=== PATIENT | male | born 1935 | race African-American/Black ===

== ENCOUNTER 2018-06-14 14:44 | Inpatient (IN) | payer MEDICARE ==
[~2018-06-14] VITALS: Ht 185.4 cm; Wt 93.0 kg
[~2018-06-14 14:44] MED LIST: FLUT1DIS3 IH; LEVO500T59 PO; PRED-220 PO
--- NOTE | 2018-06-14 15:10 | PHYS DOC ---
Past Medical History Past Medical History: Asthma, COPD, Hypertension Past Surgical History: No Surgical History Alcohol Use: None Drug Use: None Adult General Chief Complaint Chief Complaint: WEAKNESS/GENERALIZED HPI HPI Patient is a 82 year old male who presents with dizziness and weakness. Patient has a known history of COPD for which she takes daily small dose prednisone. He also has diabetes and states he has some difficulty controlling his blood glucose levels. This morning, he had an episode started suddenly when he felt lightheaded and dizzy. He also had some generalized weakness. Patient states he has had these symptoms previously when his blood glucose level was elevated. He did not actually check his level at the time. Patient presents the ER currently with some improvement of symptoms but with concerns that his blood glucose level may still be elevated. He denies fever or chills. He does have a cough but it is baseline and not worse than normal. Denies abdominal pain. Patient does endorse some diminished appetite but no nausea or vomiting. Review of Systems Review of Systems Constitutional: Denies fever Eyes: Denies change in visual acuity HENT: Denies nasal congestion Respiratory: Denies cough or shortness of breath Cardiovascular: No additional information not addressed in HPI GI: Denies abdominal pain : Denies dysuria Musculoskeletal: Denies back pain Integument: Denies rash Neurologic: Denies headache All other systems were reviewed and found to be within normal limits, except as documented in this note. Current Medications Current Medications Current Medications Medications (Trade) Dose Ordered Sig/[facility] Start Time Stop Time Status Last Admin Dose Admin Acetaminophen (Tylenol) 650 mg PRN Q4HRS PRN 06/14/18 17:15 06/15/18 17:14 Albuterol/ Ipratropium (Duoneb) 3 ml 1X ONCE 06/14/18 16:00 06/14/18 16:01 DC 06/14/18 16:04 3 ML Ondansetron HCl (Zofran) 4 mg PRN Q8HRS PRN 06/14/18 17:15 06/15/18 17:14 Sodium Chloride 1,000 ml @ 1,000 mls/hr 1X ONCE 06/14/18 16:30 06/14/18 17:29 DC 06/14/18 16:29 1,000 MLS/HR Allergies Allergies Allergies Coded Allergies Type Severity Reaction Last Updated Verified No Known Drug Allergies 09/21/14 No Physical Exam Physical Exam Constitutional: Well developed, well nourished, no acute distress, non-toxic appearance HENT: Normocephalic, atraumatic, bilateral external ears normal, oropharynx moist Eyes: PERRLA, EOMI Neck: Normal range of motion, no JVD Cardiovascular:Heart rate regular rhythm, no murmur Lungs & Thorax: Breath sounds are clear on the right with no wheezes. There are some congested sounds heard on the left. No increased work of breathing. No diminished airflow. Abdomen: Bowel sounds normal, soft, no tenderness Skin: Warm, dry, no erythema Back: No tenderness Extremities: No tenderness, no edema Neurologic: Alert and oriented X 3 Psychologic: Affect normal Current Patient Data Vital Signs Vital Signs Date Time Temp Pulse Resp B/P (MAP) Pulse Ox O2 Delivery O2 Flow Rate FiO2 06/14/18 16:07 97 Room Air 06/14/18 15:03 98.2 106 20 132/72 (92) 98.2 Lab Values Laboratory Tests Test 06/14/18 13:55 06/14/18 15:05 Urine Collection Type Unknown Urine Color Melania Urine Clarity Clear Urine pH 5.5 Urine Specific [place] 1.020 Urine Protein 30 mg/dL (NEG-TRACE) Urine Glucose (UA) Negative mg/dL (NEG) Urine Ketones (Stick) Trace mg/dL (NEG) Urine Blood Negative (NEG) Urine Nitrite Negative (NEG) Urine Bilirubin Small (NEG) Urine Urobilinogen Dipstick 1.0 mg/dL (0.2 mg/dL) Urine Leukocyte Esterase Small (NEG) Urine RBC 1-2 /HPF (0-2) Urine WBC 5-10 /HPF (0-4) Urine Squamous Epithelial Cells Mod /LPF Urine Bacteria 0 /HPF (0-FEW) Urine Hyaline Casts Moderate /HPF Urine Mucus Marked /LPF White Blood Count 21.2 x10^3/uL (4.0-11.0) H Red Blood Count 4.45 x10^6/uL (4.30-5.70) Hemoglobin 13.4 g/dL (13.0-17.5) Hematocrit 40.6 % (39.0-53.0) Mean Corpuscular Volume 91 fL (79-100) Mean Corpuscular Hemoglobin 30 pg (25-35) Mean Corpuscular Hemoglobin Concent 33 g/dL (31-37) Red Cell Distribution Width 13.5 % (11.5-14.5) Platelet Count 196 x10^3/uL (140-400) Neutrophils (%) (Auto) 95 % (31-73) H Lymphocytes (%) (Auto) 2 % (24-48) L Monocytes (%) (Auto) 3 % (0-9) Eosinophils (%) (Auto) 0 % (0-3) Basophils (%) (Auto) 0 % (0-3) Neutrophils # (Auto) 20.2 x10^3uL (1.8-7.7) H Lymphocytes # (Auto) 0.3 x10^3/uL (1.0-4.8) L Monocytes # (Auto) 0.7 x10^3/uL (0.0-1.1) Eosinophils # (Auto) 0.0 x10^3/uL (0.0-0.7) Basophils # (Auto) 0.0 x10^3/uL (0.0-0.2) Segmented Neutrophils % 64 % (35-66) Band Neutrophils % 32 % (0-9) H Lymphocytes % 1 % (24-48) L Monocytes % 3 % (0-10) Platelet Estimate Adequate (ADEQUATE) Sodium Level 138 mmol/L (136-145) Potassium Level 3.3 mmol/L (3.5-5.1) L Chloride Level 100 mmol/L (98-107) Carbon Dioxide Level 27 mmol/L (21-32) Anion Gap 11 (6-14) Blood Urea Nitrogen 13 mg/dL (8-26) Creatinine 1.5 mg/dL (0.7-1.3) H Estimated GFR (Cockcroft-Gault) 53.9 Glucose Level 164 mg/dL (70-99) H Calcium Level 8.4 mg/dL (8.5-10.1) L Troponin I Quantitative < 0.017 ng/mL (0.000-0.055) FB-Tht-G-Type Natriuretic Peptide 142 pg/mL (0-449) Procalcitonin 31.28 ng/mL (0.00-0.10) H Laboratory Tests 06/14/18 15:05 Laboratory Tests 06/14/18 15:05 EKG EKG No STEMI Interpretation Time: 15:05 Radiology/Procedures Radiology/Procedures CXR: No acute findings. Course & Med Decision Making Course & Med Decision Making Pertinent Labs and Imaging studies reviewed. (See chart for details) Patient is evaluated in the emergency department. He does not have a fever. His vital signs are stable but he is noted to have mild tachycardia. He has dry mucous membranes. Will give small fluid bolus. We'll do chest x-ray given physical exam findings documented above. Duoneb treatment. Patient is seen in the emergency department for some episode of weakness and dizziness that he had earlier in the day. His EKG is normal. His troponin is not elevated. The patient is noted to have significant leukocytosis but he also takes prednisone every day. He did have some minor adventitious lung sounds and congestion initially on arrival to the ER, primarily in the left lung [place]. He was given a dose of DuoNeb treatment which did entirely relieve this finding. His lungs were clear following the treatment. The patient gives no history of fevers or worsening cough or sputum production. He did not have a fever in the emergency room and his vital signs are normal. Mucous membranes were noted to be dry and the patient was given 1 L of normal saline in the ER. He was also noted to have a creatinine of 1.5. He denies prior history of renal insufficiency. His last creatinine was normal range and was 3 years earlier. Urinalysis was positive for a few WBCs. Urine culture was sent but suspicion for any urinary tract infection is low. Ultimately, the patient's pro-calcitonin returned significantly elevated. After this, decision is made to empirically treat for community-acquired pneumonia. He was ordered to have Rocephin in the ER along with azithromycin. Perez Disclaimer Adelaon Disclaimer This electronic medical record was generated, in whole or in part, using a voice recognition dictation system. MARLENY VILLAREAL DO Jun 14, 2018 15:10
[2018-06-14 15:48] LABS: BASO % 0 % (0-3); EOS % 0 % (0-3); HEMATOCRIT 40.6 % (39.0-53.0); HEMOGLOBIN 13.4 g/dL (13.0-17.5); LYMPH # 0.3 x10^3/uL (1.0-4.8); LYMPH % 2 % (24-48); MEAN CORPUSCULAR HEMOGLOBIN 30 pg (25-35); MEAN CORPUSCULAR HGB CONC 33 g/dL (31-37); MEAN CORPUSCULAR VOLUME 91 fL (79-100); MONO # 0.7 x10^3/uL (0.0-1.1); MONO % 3 % (0-9); NEUT # 20.2 x10^3uL (1.8-7.7); NEUT % 95 % (31-73); PLATELET COUNT 196 x10^3/uL (140-400); RED BLOOD COUNT 4.45 x10^6/uL (4.30-5.70); RED CELL DISTRIBUTION WIDTH 13.5 % (11.5-14.5); WHITE BLOOD COUNT 21.2 x10^3/uL (4.0-11.0)
[2018-06-14 15:53] LABS: CALCIUM 8.4 mg/dL (8.5-10.1); CREATININE 1.5 mg/dL (0.7-1.3); GFR 53.9; POTASSIUM 3.3 mmol/L (3.5-5.1)
[2018-06-14] MEDS ORDERED: IPRATRPIUM/ALBUTEROL 0.5/2.5MG 3 ML NEBU. NEB ONE (16:00)
--- NOTE | 2018-06-14 16:18 | RAD ---
Examination: PORTABLE CHEST 1V History: COUGH, HX OF COPD Comparison/Correlation: 10/11/2014 portable chest x-ray exam Findings: Portable upright frontal view chest was obtained. Heart size and pulmonary vasculature are normal. No infiltrate or pleural effusion. Right mid thoracic discoid atelectasis or thickening of the minor fissure is minimal. No pneumothorax. Bony structures are unremarkable. Impression: No active disease. Electronically signed by: Micheal Walters MD (06/14/2018 4:15 PM) [facility]
[2018-06-14] MEDS ORDERED: IV NORMAL SALINE 1000ML BAG 1,000 ML IV ONE (16:30)
[2018-06-14 16:38] LABS: BILIRUBIN,URINE SMALL (NEG); CLARITY,URINE CLEAR; COLOR,URINE AMBER; NITRITE,URINE NEGATIVE (NEG); PH,URINE 5.5; PROTEIN,URINE 30 mg/dL (NEG-TRACE)
[2018-06-14 16:50] LABS: HYALINE CASTS, URINE MODERATE /HPF; SQUAMOUS EPITHELIAL CELL,UR MOD /LPF
[2018-06-14 16:51] LABS: BACTERIA,URINE 0 /HPF (0-FEW)
[2018-06-14 16:56] LABS: % BANDS 32 % (0-9); % LYMPHS 1 % (24-48); % MONOS 3 % (0-10); % SEGS 64 % (35-66); PLT ESTIMATE ADEQUATE (ADEQUATE)
[2018-06-14] MEDS ORDERED: ONDANSETRON PF 4 MG/2 ML VIAL. IV PRN (17:15)
[2018-06-14] MEDS ORDERED: ACETAMINOPHEN 325 MG TABLET. PO PRN (17:15)
[2018-06-14] MEDS ORDERED: AZITHRMYCN 500MG IVPB FOR OMNI 250 ML IV ONE (18:15)
[2018-06-14 19:00] VITALS: BP 135/72
[2018-06-14] MEDS ORDERED: FURO20TA3 PO (19:56)
[2018-06-14] MEDS ORDERED: BUDE10.2 IH (20:36)
[2018-06-14 23:00] VITALS: BP 125/70
[2018-06-15 03:00] VITALS: BP 126/64
[2018-06-15 04:15] LABS: CALCIUM 8.2 mg/dL (8.5-10.1); CREATININE 1.1 mg/dL (0.7-1.3); GFR 77.2
[2018-06-15 07:00] VITALS: BP 128/76
--- NOTE | 2018-06-15 07:07 | EKG ---
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
[2018-06-15] MEDS ORDERED: PIP/TAZO PER PHARMACY MC PRN (08:30)
[2018-06-15] MEDS ORDERED: traMADol 50 MG TABLET PO PRN (08:30)
[2018-06-15] MEDS ORDERED: ONDANSETRON PF 4 MG/2 ML VIAL. IV PRN (08:30)
[2018-06-15] MEDS ORDERED: MORPHINE SULFATE 2 MG/ML VIAL. IV PRN (08:30)
[2018-06-15] MEDS ORDERED: DOCUSATE SODIUM 100 MG CAPSULE. PO PRN (08:30)
[2018-06-15] MEDS ORDERED: ACETAMINOPHEN 325 MG TABLET. PO PRN (08:30)
[2018-06-15] MEDS: PIPERACILLIN/TAZOBACTAM 3.375 GM in IV NORMAL SALINE 50ML 50 ML IV SCH ×2 (09:27→17:30)
[2018-06-15 11:00] VITALS: BP 126/74
[2018-06-15] MEDS ORDERED: ALBUTEROL SULFATE 2.5 MG/3 ML NEBU. NEB PRN (12:00)
[2018-06-15] MEDS: ALBUTEROL SULFATE 2.5 MG/3 ML NEBU. NEB SCH ×3 (12:27→19:10)
[2018-06-15] MEDS: FUROSEMIDE 20 MG TABLET PO SCH (12:54)
[2018-06-15] MEDS: predniSONE 10 MG TABLET PO SCH (12:54)
[2018-06-15 15:00] VITALS: BP 130/72
--- NOTE | 2018-06-15 15:06 | PDOC1 ---
History and Physical Date of Admission Date of Admission 06/15/18 Identification/Chief Complaint Chief Complaint weakness Source Source: Chart review, Patient History of Present Illness History of Present Illness HPI HPI Patient is a 82 year old male who presents with dizziness and weakness yesterday. pt said he had N/V yesterday, non bloody or bilous, with no abd pain. has no diarrhea or constipation. He felt very weak yesterday, could not stand up or walk. He also felt dizzy, concerning his glucose was high but didnot check it. no dm2. has COPD on prednisone 10mg daily. no fever, felt chills. feels baseline sob. cr 1.5. 1/ + bcx. Past Medical History Pulmonary: COPD Past Surgical History Past Surgical History: No pertinent history Family History Family History: Hypertension Social History Smoke: Quit ALCOHOL: rare Drugs: None Current Problem List Problem List Problems Medical Problems: (1) COPD (chronic obstructive pulmonary disease) Status: Acute (2) Dehydration Status: Acute (3) Renal insufficiency Status: Acute Current Medications Current Medications Current Medications Medications (Trade) Dose Ordered Sig/[facility] Start Time Stop Time Status Last Admin Dose Admin Acetaminophen (Tylenol) 650 mg PRN Q6HRS PRN 06/15/18 08:30 Albuterol Sulfate (Ventolin Neb Soln) 2.5 mg RTQID 06/15/18 12:00 06/15/18 12:27 2.5 MG Albuterol/ Ipratropium (Duoneb) 3 ml 1X ONCE 06/14/18 16:00 06/14/18 16:01 DC 06/14/18 16:04 3 ML Azithromycin 250 ml @ 250 mls/hr 1X ONCE 06/14/18 18:15 06/14/18 19:14 DC 06/14/18 23:03 250 MLS/HR Budesonide (Pulmicort) 0.5 mg RTBID 06/15/18 20:00 Ceftriaxone Sodium 50 ml @ 100 mls/hr 1X ONCE 06/14/18 18:15 06/14/18 18:44 DC 06/14/18 18:15 100 MLS/HR Docusate Sodium (Colace) 100 mg PRN DAILY PRN 06/15/18 08:30 Furosemide (Lasix) 20 mg DAILY 06/15/18 12:00 06/15/18 12:54 20 MG Morphine Sulfate (Morphine Sulfate) 2 mg PRN Q2HR PRN 06/15/18 08:30 Ondansetron HCl (Zofran) 4 mg PRN Q6HRS PRN 06/15/18 08:30 Piperacillin Sod/ Tazobactam Sod (Zosyn Per Pharmacy) 1 each PRN DAILY PRN 06/15/18 08:30 Piperacillin Sod/ Tazobactam Sod 3.375 gm/Sodium Chloride 50 ml @ 100 mls/hr Q6HRS 06/15/18 09:00 06/15/18 09:27 100 MLS/HR Prednisone (Prednisone) 10 mg DAILY 06/15/18 12:00 06/15/18 12:54 10 MG Sodium Chloride 1,000 ml @ 1,000 mls/hr 1X ONCE 06/14/18 16:30 06/14/18 17:29 DC 06/14/18 16:29 1,000 MLS/HR Tramadol HCl (Ultram) 50 mg PRN Q6HRS PRN 06/15/18 08:30 Allergies Allergies Allergies Coded Allergies Type Severity Reaction Last Updated Verified No Known Drug Allergies 09/21/14 No ROS Review of System CONSTITUTIONAL: No fever or chills EYES: No recent changes SKIN: No rash or itching CARDIOVASCULAR: No chest pain, syncope, palpitations, or edema RESPIRATORY: No SOB or cough GASTROINTESTINAL: No nausea, vomiting or abdominal pain NEUROLOGICAL: No headaches or weakness ENDOCRINE: No cold or heat intolerance GENITOURINARY: No urgency or frequency of urination MUSCULOSKELETAL: No back pain or joint pain LYMPHATICS: No enlarged lymph nodes PSYCHIATRIC: No anxiety or depression Physical Exam Physical Exam GEN.: No apparent distress. Alert and oriented. HEENT: Head is normocephalic, atraumatic NECK: Supple. LUNGS: bl mild decreased bs HEART: RRR, S1, S2 present. Peripheral pulses intact ABDOMEN: Soft, nontender. Positive bowel sounds. EXTREMITIES: Without any cyanosis. NEUROLOGIC: Normal speech, normal tone PSYCHIATRIC: Normal affect, normal mood. SKIN: No ulcerations Vitals Vitals Vital Signs Date Time Temp Pulse Resp B/P (MAP) Pulse Ox O2 Delivery O2 Flow Rate FiO2 06/15/18 12:27 97 Room Air 06/15/18 11:00 98.4 93 18 126/74 (91) 98.4 Labs Labs Laboratory Tests Test 06/14/18 13:55 06/14/18 15:05 06/14/18 20:25 06/14/18 23:20 Urine Collection Type Unknown Urine Color Melania Urine Clarity Clear Urine pH 5.5 Urine Specific [place] 1.020 Urine Protein 30 mg/dL (NEG-TRACE) Urine Glucose (UA) Negative mg/dL (NEG) Urine Ketones (Stick) Trace mg/dL (NEG) Urine Blood Negative (NEG) Urine Nitrite Negative (NEG) Urine Bilirubin Small (NEG) Urine Urobilinogen Dipstick 1.0 mg/dL (0.2 mg/dL) Urine Leukocyte Esterase Small (NEG) Urine RBC 1-2 /HPF (0-2) Urine WBC 5-10 /HPF (0-4) Urine Squamous Epithelial Cells Mod /LPF Urine Bacteria 0 /HPF (0-FEW) Urine Hyaline Casts Moderate /HPF Urine Mucus Marked /LPF White Blood Count 21.2 x10^3/uL (4.0-11.0) Red Blood Count 4.45 x10^6/uL (4.30-5.70) Hemoglobin 13.4 g/dL (13.0-17.5) Hematocrit 40.6 % (39.0-53.0) Mean Corpuscular Volume 91 fL (79-100) Mean Corpuscular Hemoglobin 30 pg (25-35) Mean Corpuscular Hemoglobin Concent 33 g/dL (31-37) Red Cell Distribution Width 13.5 % (11.5-14.5) Platelet Count 196 x10^3/uL (140-400) Neutrophils (%) (Auto) 95 % (31-73) Lymphocytes (%) (Auto) 2 % (24-48) Monocytes (%) (Auto) 3 % (0-9) Eosinophils (%) (Auto) 0 % (0-3) Basophils (%) (Auto) 0 % (0-3) Neutrophils # (Auto) 20.2 x10^3uL (1.8-7.7) Lymphocytes # (Auto) 0.3 x10^3/uL (1.0-4.8) Monocytes # (Auto) 0.7 x10^3/uL (0.0-1.1) Eosinophils # (Auto) 0.0 x10^3/uL (0.0-0.7) Basophils # (Auto) 0.0 x10^3/uL (0.0-0.2) Segmented Neutrophils % 64 % (35-66) Band Neutrophils % 32 % (0-9) Lymphocytes % 1 % (24-48) Monocytes % 3 % (0-10) Platelet Estimate Adequate (ADEQUATE) Sodium Level 138 mmol/L (136-145) Potassium Level 3.3 mmol/L (3.5-5.1) Chloride Level 100 mmol/L (98-107) Carbon Dioxide Level 27 mmol/L (21-32) Anion Gap 11 (6-14) Blood Urea Nitrogen 13 mg/dL (8-26) Creatinine 1.5 mg/dL (0.7-1.3) Estimated GFR (Cockcroft-Gault) 53.9 Glucose Level 164 mg/dL (70-99) Calcium Level 8.4 mg/dL (8.5-10.1) Troponin I Quantitative < 0.017 ng/mL (0.000-0.055) < 0.017 ng/mL (0.000-0.055) < 0.017 ng/mL (0.000-0.055) UA-Fto-H-Type Natriuretic Peptide 142 pg/mL (0-449) Procalcitonin 31.28 ng/mL (0.00-0.10) Test 06/15/18 02:50 Sodium Level 145 mmol/L (136-145) Potassium Level 4.0 mmol/L (3.5-5.1) Chloride Level 108 mmol/L (98-107) Carbon Dioxide Level 30 mmol/L (21-32) Anion Gap 7 (6-14) Blood Urea Nitrogen 13 mg/dL (8-26) Creatinine 1.1 mg/dL (0.7-1.3) Estimated GFR (Cockcroft-Gault) 77.2 Glucose Level 95 mg/dL (70-99) Calcium Level 8.2 mg/dL (8.5-10.1) Laboratory Tests Test 06/14/18 15:05 06/14/18 20:25 06/14/18 23:20 06/15/18 02:50 White Blood Count 21.2 x10^3/uL (4.0-11.0) Red Blood Count 4.45 x10^6/uL (4.30-5.70) Hemoglobin 13.4 g/dL (13.0-17.5) Hematocrit 40.6 % (39.0-53.0) Mean Corpuscular Volume 91 fL (79-100) Mean Corpuscular Hemoglobin 30 pg (25-35) Mean Corpuscular Hemoglobin Concent 33 g/dL (31-37) Red Cell Distribution Width 13.5 % (11.5-14.5) Platelet Count 196 x10^3/uL (140-400) Neutrophils (%) (Auto) 95 % (31-73) Lymphocytes (%) (Auto) 2 % (24-48) Monocytes (%) (Auto) 3 % (0-9) Eosinophils (%) (Auto) 0 % (0-3) Basophils (%) (Auto) 0 % (0-3) Neutrophils # (Auto) 20.2 x10^3uL (1.8-7.7) Lymphocytes # (Auto) 0.3 x10^3/uL (1.0-4.8) Monocytes # (Auto) 0.7 x10^3/uL (0.0-1.1) Eosinophils # (Auto) 0.0 x10^3/uL (0.0-0.7) Basophils # (Auto) 0.0 x10^3/uL (0.0-0.2) Segmented Neutrophils % 64 % (35-66) Band Neutrophils % 32 % (0-9) Lymphocytes % 1 % (24-48) Monocytes % 3 % (0-10) Platelet Estimate Adequate (ADEQUATE) Sodium Level 138 mmol/L (136-145) 145 mmol/L (136-145) Potassium Level 3.3 mmol/L (3.5-5.1) 4.0 mmol/L (3.5-5.1) Chloride Level 100 mmol/L (98-107) 108 mmol/L (98-107) Carbon Dioxide Level 27 mmol/L (21-32) 30 mmol/L (21-32) Anion Gap 11 (6-14) 7 (6-14) Blood Urea Nitrogen 13 mg/dL (8-26) 13 mg/dL (8-26) Creatinine 1.5 mg/dL (0.7-1.3) 1.1 mg/dL (0.7-1.3) Estimated GFR (Cockcroft-Gault) 53.9 77.2 Glucose Level 164 mg/dL (70-99) 95 mg/dL (70-99) Calcium Level 8.4 mg/dL (8.5-10.1) 8.2 mg/dL (8.5-10.1) Troponin I Quantitative < 0.017 ng/mL (0.000-0.055) < 0.017 ng/mL (0.000-0.055) < 0.017 ng/mL (0.000-0.055) ID-[place]-B-Type Natriuretic Peptide 142 pg/mL (0-449) Procalcitonin 31.28 ng/mL (0.00-0.10) VTE Prophylaxis Ordered VTE Prophylaxis Devices: Yes VTE Pharmacological Prophylaxi: Yes Assessment/Plan Assessment/Plan generalized weakness 1/4 + bacteremia MILAGRO, vasomotor copd stable plan: id consult add zosyn for now, fu bcx cont home meds add albuterol prn dvt ppx PTTO HASEEB ANTOINE MD Jun 15, 2018 15:06
--- NOTE | 2018-06-15 15:46 | PDOC2 ---
CONSULT Date of Consult Date of Consult DATE: 06/15/18 TIME: 15:38 Reason for Consult Reason for Consult: New Cr Elevation Source Source: Chart review, Patient History of Present Illness Reason for Visit: Patient is a 82 year old AA male who presents with dizziness and weakness yesterday. pt said he had N/V yesterday, and dry heaves ,h no abd pain. no diarrhea or constipation. He felt very weak yesterday, could not stand up or walk and was feeling dizzy, Has COPD on prednisone 10mg daily. no fever, felt chills. feels baseline sob. No Significant PMHx of HTN, DM or CAD ,Denies any urinary complaints , No symptoms of UTI or retention. Occ Aleve for STEIN . Denies any LE edema Past Medical History Pulmonary: COPD Past Surgical History Past Surgical History: No pertinent history Family History Family History: Hypertension Social History Quit ALCOHOL: rare Drugs: None Current Problem List Problem List Problems Medical Problems: (1) COPD (chronic obstructive pulmonary disease) Status: Acute (2) Dehydration Status: Acute (3) Renal insufficiency Status: Acute Current Medications Current Medications Current Medications Albuterol/ Ipratropium (Duoneb) 3 ml 1X ONCE NEB Last administered on at 16:04; Start 06/14/18 at 16:00; Stop 06/14/18 at 16:01; Status DC Sodium Chloride 1,000 ml @ 1,000 mls/hr 1X ONCE IV Last administered on 06/14at 16:29; Start 06/14/18 at 16:30; Stop 06/14/18 at 17:29; Status DC Ondansetron HCl (Zofran) 4 mg PRN Q8HRS PRN IV NAUSEA/VOMITING; Start at 17:15; Stop 06/15/18 at 08:25; Status DC Acetaminophen (Tylenol) 650 mg PRN Q4HRS PRN PO FEVER; Start 06/14/18 at 17:15 ; Stop 06/15/18 at 08:24; Status DC Azithromycin 250 ml @ 250 mls/hr 1X ONCE IV Last administered on 06/14/18at 23:03; Start 06/14/18 at 18:15; Stop 06/14/18 at 19:14; Status DC Ceftriaxone Sodium 50 ml @ 100 mls/hr 1X ONCE IV Last administered on at 18:15; Start 06/14/18 at 18:15; Stop 06/14/18 at 18:44; Status DC Piperacillin Sod/ Tazobactam Sod 3.375 gm/Sodium Chloride 50 ml @ 100 mls/hr Q6HRS IV Last administered on 06/15/18at 09:27; Start 06/15/18 at 09:00 Piperacillin Sod/ Tazobactam Sod (Zosyn Per Pharmacy) 1 each PRN DAILY PRN MC SEE COMMENTS; Start 06/15/18 at 08:30 Acetaminophen (Tylenol) 650 mg PRN Q6HRS PRN PO FEVER; Start 06/15/18 at 08:30 Ondansetron HCl (Zofran) 4 mg PRN Q6HRS PRN IV NAUSEA/VOMITING; Start at 08:30 Morphine Sulfate (Morphine Sulfate) 2 mg PRN Q2HR PRN IV MODERATE TO SEVERE PAIN; Start 06/15/18 at 08:30 Tramadol HCl (Ultram) 50 mg PRN Q6HRS PRN PO MILD TO MODERATE PAIN; Start at 08:30 Docusate Sodium (Colace) 100 mg PRN DAILY PRN PO CONSTIPATION; Start 06/15/18 at 08:30 Furosemide (Lasix) 20 mg DAILY PO Last administered on 06/15/18at 12:54; Start 06/15/18 at 12:00 Prednisone (Prednisone) 10 mg DAILY PO Last administered on 06/15/18at 12:54; Start 06/15/18 at 12:00 Budesonide (Pulmicort) 0.5 mg RTBID NEB ; Start 06/15/18 at 20:00 Albuterol Sulfate (Ventolin Neb Soln) 2.5 mg PRN Q4HRS PRN NEB SHORTNESS OF BREATH; Start 06/15/18 at 12:00 Albuterol Sulfate (Ventolin Neb Soln) 2.5 mg RTQID NEB Last administered on at 15:15; Start 06/15/18 at 12:00 Enoxaparin Sodium (Lovenox 40mg Syringe) 40 mg Q24H SQ ; Start 06/15/18 at 16: 00 Active Scripts Active Reported Symbicort 160-4.5 Mcg Inhaler (Budesonide/Formoterol Fumarate) 10.2 Gm Hfa.aer.ad 2 Puff IH BID Furosemide 20 Mg Tablet 20 Mg PO DAILY Prednisone (Prednisone) 10 Mg Tablet 10 Mg PO DAILY Allergies Allergies: Coded Allergies: No Known Drug Allergies (Unverified , 09/21/14) ROS Review of System As per HPI Physical Exam Physical Exam GEN.: No apparent distress. Alert and oriented. HEENT: OM Moist NECK: Supple. LUNGS: CTA Bilat HEART: RRR, S1, S2 present. ABDOMEN: Soft, nontender. EXTREMITIES: No Edema NEUROLOGIC: Groslly Normal SKIN: No Rash No Hernadez, No SP/CVA tenderness Vital Signs Vital Signs Date Time Temp Pulse Resp B/P (MAP) Pulse Ox O2 Delivery O2 Flow Rate FiO2 06/15/18 15:16 Room Air 06/15/18 12:27 97 06/15/18 11:00 98.4 93 18 126/74 (91) 98.4 Assessment & Plan [place]- Secondary to Dehydration Creatinine Improved E-lytes stable , Good UOP Generalized weakness No Vomiting Now Discussed with pt Labs Labs Laboratory Tests Test 06/14/18 13:55 06/14/18 15:05 06/14/18 20:25 06/14/18 23:20 Urine Collection Type Unknown Urine Color Melania Urine Clarity Clear Urine pH 5.5 Urine Specific George 1.020 Urine Protein 30 mg/dL (NEG-TRACE) Urine Glucose (UA) Negative mg/dL (NEG) Urine Ketones (Stick) Trace mg/dL (NEG) Urine Blood Negative (NEG) Urine Nitrite Negative (NEG) Urine Bilirubin Small (NEG) Urine Urobilinogen Dipstick 1.0 mg/dL (0.2 mg/dL) Urine Leukocyte Esterase Small (NEG) Urine RBC 1-2 /HPF (0-2) Urine WBC 5-10 /HPF (0-4) Urine Squamous Epithelial Cells Mod /LPF Urine Bacteria 0 /HPF (0-FEW) Urine Hyaline Casts Moderate /HPF Urine Mucus Marked /LPF White Blood Count 21.2 x10^3/uL (4.0-11.0) Red Blood Count 4.45 x10^6/uL (4.30-5.70) Hemoglobin 13.4 g/dL (13.0-17.5) Hematocrit 40.6 % (39.0-53.0) Mean Corpuscular Volume 91 fL (79-100) Mean Corpuscular Hemoglobin 30 pg (25-35) Mean Corpuscular Hemoglobin Concent 33 g/dL (31-37) Red Cell Distribution Width 13.5 % (11.5-14.5) Platelet Count 196 x10^3/uL (140-400) Neutrophils (%) (Auto) 95 % (31-73) Lymphocytes (%) (Auto) 2 % (24-48) Monocytes (%) (Auto) 3 % (0-9) Eosinophils (%) (Auto) 0 % (0-3) Basophils (%) (Auto) 0 % (0-3) Neutrophils # (Auto) 20.2 x10^3uL (1.8-7.7) Lymphocytes # (Auto) 0.3 x10^3/uL (1.0-4.8) Monocytes # (Auto) 0.7 x10^3/uL (0.0-1.1) Eosinophils # (Auto) 0.0 x10^3/uL (0.0-0.7) Basophils # (Auto) 0.0 x10^3/uL (0.0-0.2) Segmented Neutrophils % 64 % (35-66) Band Neutrophils % 32 % (0-9) Lymphocytes % 1 % (24-48) Monocytes % 3 % (0-10) Platelet Estimate Adequate (ADEQUATE) Sodium Level 138 mmol/L (136-145) Potassium Level 3.3 mmol/L (3.5-5.1) Chloride Level 100 mmol/L (98-107) Carbon Dioxide Level 27 mmol/L (21-32) Anion Gap 11 (6-14) Blood Urea Nitrogen 13 mg/dL (8-26) Creatinine 1.5 mg/dL (0.7-1.3) Estimated GFR (Cockcroft-Gault) 53.9 Glucose Level 164 mg/dL (70-99) Calcium Level 8.4 mg/dL (8.5-10.1) Troponin I Quantitative < 0.017 ng/mL (0.000-0.055) < 0.017 ng/mL (0.000-0.055) < 0.017 ng/mL (0.000-0.055) QX-Vsk-M-Type Natriuretic Peptide 142 pg/mL (0-449) Procalcitonin 31.28 ng/mL (0.00-0.10) Test 06/15/18 02:50 Sodium Level 145 mmol/L (136-145) Potassium Level 4.0 mmol/L (3.5-5.1) Chloride Level 108 mmol/L (98-107) Carbon Dioxide Level 30 mmol/L (21-32) Anion Gap 7 (6-14) Blood Urea Nitrogen 13 mg/dL (8-26) Creatinine 1.1 mg/dL (0.7-1.3) Estimated GFR (Cockcroft-Gault) 77.2 Glucose Level 95 mg/dL (70-99) Calcium Level 8.2 mg/dL (8.5-10.1) Laboratory Tests Test 06/14/18 20:25 06/14/18 23:20 06/15/18 02:50 Troponin I Quantitative < 0.017 ng/mL (0.000-0.055) < 0.017 ng/mL (0.000-0.055) Sodium Level 145 mmol/L (136-145) Potassium Level 4.0 mmol/L (3.5-5.1) Chloride Level 108 mmol/L (98-107) Carbon Dioxide Level 30 mmol/L (21-32) Anion Gap 7 (6-14) Blood Urea Nitrogen 13 mg/dL (8-26) Creatinine 1.1 mg/dL (0.7-1.3) Estimated GFR (Cockcroft-Gault) 77.2 Glucose Level 95 mg/dL (70-99) Calcium Level 8.2 mg/dL (8.5-10.1) Review All relevant outside records, renal labs, imaging studies, telemetry/EKG's were reviewed. Images Images cXr-- Findings: Portable upright frontal view chest was obtained. Heart size and pulmonary vasculature are normal. No infiltrate or pleural effusion. Right mid thoracic discoid atelectasis or thickening of the minor fissure is minimal. No pneumothorax. Bony structures are unremarkable. Impression: No active disease. VAL COLLINS MD Jun 15, 2018 15:46
[2018-06-15] MEDS: ENOXAPARIN 40 MG/0.4 ML SYRINGE. SQ SCH (17:30)
[2018-06-15 19:00] VITALS: BP 138/78
[2018-06-15] MEDS: BUDESONIDE 0.5 MG/2 ML NEBU. NEB SCH (19:10)
--- NOTE | 2018-06-15 22:15 | CONS ---
DATE OF CONSULTATION: 06/15/2018 REASON FOR CONSULTATION: Gram-negative bacteremia. HISTORY OF PRESENT ILLNESS: An 82-year-old male who presented to the ER after feeling generalized aches and pains mainly over the shoulders, dizziness, not feeling well in the morning yesterday. He said he woke up, he was fine. He was taking his breakfast and then suddenly had the episode of lightheadedness and dizzy. He thought it was because his blood sugars were low. He did not check at that time. After he came to the ER, his symptoms somewhat improved. He denied any fevers, chills, nausea, vomiting, diarrhea, abdominal pain. Does have some cough. Denies any urinary symptoms, denies any sick contact. His white count was elevated at 21,000. Blood cultures were done this morning. They were reported positive 1/4 bottles, so ID consult was requested. The patient had received ceftriaxone and azithromycin empirically this morning. It was changed to Zosyn. Chest x-ray showed no acute active disease. ID consult was requested for antibiotic management. REVIEW OF SYSTEMS: Negative except for above in HPI. CURRENT MEDICATION: IV Zosyn. OTHER MEDICATIONS: Reviewed in medication list. ALLERGIES: No known drug allergies. SOCIAL HISTORY: Denies smoking or illicit drug use. Lives alone. No pets. PHYSICAL EXAMINATION: GENERAL: Alert, oriented x 3 male in no acute distress, pleasant, cooperative. VITAL SIGNS: Temperature 98.4, pulse 93, respiration rate 18, blood pressure 126/74, oxygen saturation 97% on room air. HEENT: Normocephalic, atraumatic, anicteric. No thrush. Oral mucosa moist. NECK: Supple. No JVD. LUNGS: Clear bilaterally. No wheezing. HEART: S1, S2. No rubs, gallops or murmurs. ABDOMEN: Soft, nontender, nondistended. No rebound, no guarding. EXTREMITIES: No edema, no cyanosis, no clubbing. BACK: Reveals normal curvature. No CVA tenderness. NEUROLOGIC: Alert and oriented x 3. Grossly nonfocal. PSYCHIATRIC: Cooperative, appropriate mood and affect. LABORATORY DATA: WBC 21.2, 13.4, hematocrit 40.6, platelets 196, neutrophils 95%, bands 32. Sodium 138, potassium 3.3, chloride 100, bicarbonate 27, BUN 13, creatinine 1.5, glucose 164. BNP 142. UA shows 5-10 wbc's, small leukocyte esterase. MICROBIOLOGY: Blood culture 08/21 bottles positive for gram-negative rods. ID and EMIR pending at this time. Urine culture pending at this time. IMAGING: Chest x-ray as above. IMPRESSION: 1. Gram-negative sepsis, 08/21 BC POA ,etiology unclear, could be . 2. Leukocytosis could be multifactorial, on steroids prior to admission. 3. Pyuria. Urine culture pending. 4. Chronic obstructive pulmonary disease. 5. Immunosuppression on steroids. 6. Acute kidney injury. 7. Bandemia. 8. Generalized weakness, improved. 9. Hypertension. RECOMMENDATIONS: 1. Continue empiric Zosyn. 2. Follow up culture and susceptibility results. 3. Repeat blood cultures in a.m. 4. Follow up urine cultures. 5. Continue supportive care. Thank you for allowing me to participate in this patient's care. If you have any questions, do not hesitate to contact me. ANTHONY PLASENCIA MD DR: SHARON/padmini JOB#: [id number] / [id number] MAHIN
[2018-06-15 23:00] VITALS: BP 140/80
[2018-06-16] VITALS (9 sets, daily range): BP systolic 110–150; BP diastolic 54–87
[2018-06-16] MEDS: PIPERACILLIN/TAZOBACTAM 3.375 GM in IV NORMAL SALINE 50ML 50 ML IV SCH ×5 (00:05→22:48)
[2018-06-16 04:29] LABS: BASO % 0 % (0-3); EOS # 0.1 x10^3/uL (0.0-0.7); EOS % 1 % (0-3); HEMATOCRIT 39.1 % (39.0-53.0); HEMOGLOBIN 12.9 g/dL (13.0-17.5); LYMPH # 0.9 x10^3/uL (1.0-4.8); LYMPH % 7 % (24-48); MEAN CORPUSCULAR HEMOGLOBIN 30 pg (25-35); MEAN CORPUSCULAR HGB CONC 33 g/dL (31-37); MEAN CORPUSCULAR VOLUME 91 fL (79-100); MONO # 1.1 x10^3/uL (0.0-1.1); MONO % 8 % (0-9); NEUT # 12.3 x10^3uL (1.8-7.7); NEUT % 85 % (31-73); PLATELET COUNT 165 x10^3/uL (140-400); RED BLOOD COUNT 4.27 x10^6/uL (4.30-5.70); RED CELL DISTRIBUTION WIDTH 13.3 % (11.5-14.5); WHITE BLOOD COUNT 14.5 x10^3/uL (4.0-11.0)
[2018-06-16 04:49] LABS: CREATININE 1.1 mg/dL (0.7-1.3); GFR 77.2; POTASSIUM 3.5 mmol/L (3.5-5.1)
[2018-06-16] MEDS: ALBUTEROL SULFATE 2.5 MG/3 ML NEBU. NEB SCH ×4 (07:45→19:58)
[2018-06-16] MEDS: BUDESONIDE 0.5 MG/2 ML NEBU. NEB SCH ×2 (07:45→19:58)
[2018-06-16] MEDS: FUROSEMIDE 20 MG TABLET PO SCH (08:24)
[2018-06-16] MEDS: predniSONE 10 MG TABLET PO SCH (08:24)
--- NOTE | 2018-06-16 10:52 | PDOC ---
Infectious Disease Note Subjective: Subjective Pt without complaints today less dizzy no fc/n/v/d/abdo pain/gu symptoms ROS: ROS Negative except for above. Vital Signs: Vital Signs Vital Signs Date Time Temp Pulse Resp B/P (MAP) Pulse Ox O2 Delivery O2 Flow Rate FiO2 06/16/18 08:21 98.3 101 20 130/81 (97) 95 Room Air 98.3 Physical Exam: PHYSICAL EXAM GENERAL: Alert, oriented x 3 male in no acute distress, pleasant, cooperative. HEENT: Normocephalic, atraumatic, anicteric. No thrush. Oral mucosa moist. NECK: Supple. No JVD. LUNGS: Clear bilaterally. No wheezing. HEART: S1, S2. No rubs, gallops or murmurs. ABDOMEN: Soft, nontender, nondistended. No rebound, no guarding. EXTREMITIES: No edema, no cyanosis, no clubbing. BACK: Reveals normal curvature. No CVA tenderness. NEUROLOGIC: Alert and oriented x 3. Grossly nonfocal. PSYCHIATRIC: Cooperative, appropriate mood and affect. Medications: Inpatient Meds: Current Medications Medications (Trade) Dose Ordered Sig/Lacie Start Time Stop Time Status Last Admin Dose Admin Acetaminophen (Tylenol) 650 mg PRN Q6HRS PRN 06/15/18 08:30 Albuterol Sulfate (Ventolin Neb Soln) 2.5 mg RTQID 06/15/18 12:00 06/16/18 07:45 2.5 MG Albuterol/ Ipratropium (Duoneb) 3 ml 1X ONCE 06/14/18 16:00 06/14/18 16:01 DC 06/14/18 16:04 3 ML Azithromycin 250 ml @ 250 mls/hr 1X ONCE 06/14/18 18:15 06/14/18 19:14 DC 06/14/18 23:03 250 MLS/HR Budesonide (Pulmicort) 0.5 mg RTBID 06/15/18 20:00 06/16/18 07:45 0.5 MG Ceftriaxone Sodium 50 ml @ 100 mls/hr 1X ONCE 06/14/18 18:15 06/14/18 18:44 DC 06/14/18 18:15 100 MLS/HR Docusate Sodium (Colace) 100 mg PRN DAILY PRN 06/15/18 08:30 Enoxaparin Sodium (Lovenox 40mg Syringe) 40 mg Q24H 06/15/18 16:00 06/15/18 17:30 40 MG Furosemide (Lasix) 20 mg DAILY 06/15/18 12:00 06/16/18 08:24 20 MG Morphine Sulfate (Morphine Sulfate) 2 mg PRN Q2HR PRN 06/15/18 08:30 Ondansetron HCl (Zofran) 4 mg PRN Q6HRS PRN 06/15/18 08:30 Piperacillin Sod/ Tazobactam Sod (Zosyn Per Pharmacy) 1 each PRN DAILY PRN 06/15/18 08:30 Piperacillin Sod/ Tazobactam Sod 3.375 gm/Sodium Chloride 50 ml @ 100 mls/hr Q6HRS 06/15/18 09:00 06/16/18 05:03 100 MLS/HR Prednisone (Prednisone) 10 mg DAILY 06/15/18 12:00 06/16/18 08:24 10 MG Sodium Chloride 1,000 ml @ 1,000 mls/hr 1X ONCE 06/14/18 16:30 06/14/18 17:29 DC 06/14/18 16:29 1,000 MLS/HR Tramadol HCl (Ultram) 50 mg PRN Q6HRS PRN 06/15/18 08:30 Labs: Lab Laboratory Tests Test 06/16/18 03:15 White Blood Count 14.5 x10^3/uL (4.0-11.0) Red Blood Count 4.27 x10^6/uL (4.30-5.70) Hemoglobin 12.9 g/dL (13.0-17.5) Hematocrit 39.1 % (39.0-53.0) Mean Corpuscular Volume 91 fL (79-100) Mean Corpuscular Hemoglobin 30 pg (25-35) Mean Corpuscular Hemoglobin Concent 33 g/dL (31-37) Red Cell Distribution Width 13.3 % (11.5-14.5) Platelet Count 165 x10^3/uL (140-400) Neutrophils (%) (Auto) 85 % (31-73) Lymphocytes (%) (Auto) 7 % (24-48) Monocytes (%) (Auto) 8 % (0-9) Eosinophils (%) (Auto) 1 % (0-3) Basophils (%) (Auto) 0 % (0-3) Neutrophils # (Auto) 12.3 x10^3uL (1.8-7.7) Lymphocytes # (Auto) 0.9 x10^3/uL (1.0-4.8) Monocytes # (Auto) 1.1 x10^3/uL (0.0-1.1) Eosinophils # (Auto) 0.1 x10^3/uL (0.0-0.7) Basophils # (Auto) 0.0 x10^3/uL (0.0-0.2) Sodium Level 143 mmol/L (136-145) Potassium Level 3.5 mmol/L (3.5-5.1) Chloride Level 107 mmol/L (98-107) Carbon Dioxide Level 30 mmol/L (21-32) Anion Gap 6 (6-14) Blood Urea Nitrogen 11 mg/dL (8-26) Creatinine 1.1 mg/dL (0.7-1.3) Estimated GFR (Cockcroft-Gault) 77.2 Glucose Level 104 mg/dL (70-99) Calcium Level 9.0 mg/dL (8.5-10.1) Micro RUN DATE: 06/15/18 PAGE 1 RUN TIME: 0806 [facility] [address] [place] [address] Iván Sim M.D., [employer] PATIENT: ANNALEE AUSTIN ACCT: [id number] LOC: [address] [place] [address] U : [id number] AGE/SX: 82/M ROOM: 8 REG : 06/14/[address]: SLY CAIN MD : [id number] BED: 1 DIS : STATUS: ADM Taylor TLOC: SPEC #: [id number] FRED: 06/14/18 STATUS: NANNETTE REQ #: [id number] RECD: 06/14/[address]: MARLENY VILLAREAL DO SOURCE: BLOOD ENTR: 06/14/[address]: VAL COLLINS MD [facility]: UNKNOWN PCP NAME ORDERED: BCULT Procedure Result BLOOD CULTURE Final GRAM NEGATIVE RODS IN 1 OF 4 BOTTLES (2 SETS DRAWN). CALLED TO SERAFIN VALERIO ON 5N 06/15/18804 BY Lucía NAPOLES. CULTURE HAS BEEN SENT TO [facility] FOR FURTHER IDENTIFICATION. Objective: Assessment: 1. Gram-negative sepsis,1/4 bottles positive, source unclear, could be . 2. Leukocytosis could be multifactorial, on steroids prior to admission. 3. Pyuria. Urine culture pending. 4. Chronic obstructive pulmonary disease. 5. Immunosuppression on steroids. 6. Acute kidney injury. 7. Bandemia. 8. Generalized weakness, improved. 9. Hypertension. Plan: Plan of Care Continue empiric Zosyn. Follow up culture and susceptibility results. Follow up urine cultures. Continue supportive care. ANTHONY PLASENCIA MD Jun 16, 2018 10:52
--- NOTE | 2018-06-16 13:23 | PDOC ---
SUBJECTIVE ROS No complaints, wants to go home OBJECTIVE Vital Signs Vital Signs Date Time Temp Pulse Resp B/P (MAP) Pulse Ox O2 Delivery O2 Flow Rate FiO2 06/16/18 11:06 Room Air 06/16/18 11:00 98.2 101 18 150/84 (106) 97 98.2 I & 0 Intake and Output 06/16/18 07:00 Intake Total 1310 ml Balance 1310 ml Intake Oral 1260 ml IV Total 50 ml # Voids 5 PHYSICAL EXAM Physical Exam GEN.: No apparent distress. Alert and oriented. HEENT: OM Moist NECK: Supple. LUNGS: CTA Bilat HEART: RRR, S1, S2 present. ABDOMEN: Soft, nontender. EXTREMITIES: No Edema NEUROLOGIC: Groslly Normal SKIN: No Rash No Hernadez, No SP/CVA tenderness DIAGNOSIS/ASSESSMENT Assessment & Plan [place]- Secondary to Dehydration Creatinine normal , likely his baseline E-lytes stable , Good UOP Generalized weakness No Vomiting Now Discussed with pt and RN Will sign off, call for any questions/Concerns COMMENT/RELEVANT DATA Meds Current Medications Medications (Trade) Dose Ordered Sig/Lacie Start Time Stop Time Status Last Admin Dose Admin Acetaminophen (Tylenol) 650 mg PRN Q6HRS PRN 06/15/18 08:30 Albuterol Sulfate (Ventolin Neb Soln) 2.5 mg RTQID 06/15/18 12:00 06/16/18 11:05 2.5 MG Albuterol/ Ipratropium (Duoneb) 3 ml 1X ONCE 06/14/18 16:00 06/14/18 16:01 DC 06/14/18 16:04 3 ML Azithromycin 250 ml @ 250 mls/hr 1X ONCE 06/14/18 18:15 06/14/18 19:14 DC 06/14/18 23:03 250 MLS/HR Budesonide (Pulmicort) 0.5 mg RTBID 06/15/18 20:00 06/16/18 07:45 0.5 MG Ceftriaxone Sodium 50 ml @ 100 mls/hr 1X ONCE 06/14/18 18:15 06/14/18 18:44 DC 06/14/18 18:15 100 MLS/HR Docusate Sodium (Colace) 100 mg PRN DAILY PRN 06/15/18 08:30 Enoxaparin Sodium (Lovenox 40mg Syringe) 40 mg Q24H 06/15/18 16:00 06/15/18 17:30 40 MG Furosemide (Lasix) 20 mg DAILY 06/15/18 12:00 06/16/18 08:24 20 MG Morphine Sulfate (Morphine Sulfate) 2 mg PRN Q2HR PRN 06/15/18 08:30 Ondansetron HCl (Zofran) 4 mg PRN Q6HRS PRN 06/15/18 08:30 Piperacillin Sod/ Tazobactam Sod (Zosyn Per Pharmacy) 1 each PRN DAILY PRN 06/15/18 08:30 Piperacillin Sod/ Tazobactam Sod 3.375 gm/Sodium Chloride 50 ml @ 100 mls/hr Q6HRS 06/15/18 09:00 06/16/18 11:18 100 MLS/HR Prednisone (Prednisone) 10 mg DAILY 06/15/18 12:00 06/16/18 08:24 10 MG Sodium Chloride 1,000 ml @ 1,000 mls/hr 1X ONCE 06/14/18 16:30 06/14/18 17:29 DC 06/14/18 16:29 1,000 MLS/HR Tramadol HCl (Ultram) 50 mg PRN Q6HRS PRN 06/15/18 08:30 Lab Laboratory Tests Test 06/16/18 03:15 White Blood Count 14.5 x10^3/uL (4.0-11.0) Red Blood Count 4.27 x10^6/uL (4.30-5.70) Hemoglobin 12.9 g/dL (13.0-17.5) Hematocrit 39.1 % (39.0-53.0) Mean Corpuscular Volume 91 fL (79-100) Mean Corpuscular Hemoglobin 30 pg (25-35) Mean Corpuscular Hemoglobin Concent 33 g/dL (31-37) Red Cell Distribution Width 13.3 % (11.5-14.5) Platelet Count 165 x10^3/uL (140-400) Neutrophils (%) (Auto) 85 % (31-73) Lymphocytes (%) (Auto) 7 % (24-48) Monocytes (%) (Auto) 8 % (0-9) Eosinophils (%) (Auto) 1 % (0-3) Basophils (%) (Auto) 0 % (0-3) Neutrophils # (Auto) 12.3 x10^3uL (1.8-7.7) Lymphocytes # (Auto) 0.9 x10^3/uL (1.0-4.8) Monocytes # (Auto) 1.1 x10^3/uL (0.0-1.1) Eosinophils # (Auto) 0.1 x10^3/uL (0.0-0.7) Basophils # (Auto) 0.0 x10^3/uL (0.0-0.2) Sodium Level 143 mmol/L (136-145) Potassium Level 3.5 mmol/L (3.5-5.1) Chloride Level 107 mmol/L (98-107) Carbon Dioxide Level 30 mmol/L (21-32) Anion Gap 6 (6-14) Blood Urea Nitrogen 11 mg/dL (8-26) Creatinine 1.1 mg/dL (0.7-1.3) Estimated GFR (Cockcroft-Gault) 77.2 Glucose Level 104 mg/dL (70-99) Calcium Level 9.0 mg/dL (8.5-10.1) Results All relevant outside records, renal labs, imaging studies, telemetry/EKG's were reviewed. VAL COLLINS MD Jun 16, 2018 13:23
--- NOTE | 2018-06-16 13:36 | PDOC ---
PROGRESS NOTES Chief Complaint Chief Complaint generalized weakness 1/4 + bacteremia MILAGRO, vasomotor copd stable leukocytosis, on prednisone 10mg daily plan: id consulted add zosyn for now, fu bcx, fu ucx cont home meds add albuterol prn dvt ppx PTOT History of Present Illness History of Present Illness ROS: no fever, chills, sob or chest pain cr much better feels ok no weakness wbc BETTER TO 14 Vitals Vitals Vital Signs Date Time Temp Pulse Resp B/P (MAP) Pulse Ox O2 Delivery O2 Flow Rate FiO2 06/16/18 11:06 Room Air 06/16/18 11:00 98.2 101 18 150/84 (106) 97 98.2 Physical Exam Physical Exam GENERAL: Alert, oriented x 3 male in no acute distress, pleasant, cooperative. HEENT: Normocephalic, atraumatic, anicteric. No thrush. Oral mucosa moist. NECK: Supple. No JVD. LUNGS: Clear bilaterally. No wheezing. HEART: S1, S2. No rubs, gallops or murmurs. ABDOMEN: Soft, nontender, nondistended. No rebound, no guarding. EXTREMITIES: No edema, no cyanosis, no clubbing. BACK: Reveals normal curvature. No CVA tenderness. NEUROLOGIC: Alert and oriented x 3. Grossly nonfocal. PSYCHIATRIC: Cooperative, appropriate mood and affect. Lungs: Wheezing, Crackles Labs LABS Laboratory Tests Test 06/16/18 03:15 White Blood Count 14.5 x10^3/uL (4.0-11.0) Red Blood Count 4.27 x10^6/uL (4.30-5.70) Hemoglobin 12.9 g/dL (13.0-17.5) Hematocrit 39.1 % (39.0-53.0) Mean Corpuscular Volume 91 fL (79-100) Mean Corpuscular Hemoglobin 30 pg (25-35) Mean Corpuscular Hemoglobin Concent 33 g/dL (31-37) Red Cell Distribution Width 13.3 % (11.5-14.5) Platelet Count 165 x10^3/uL (140-400) Neutrophils (%) (Auto) 85 % (31-73) Lymphocytes (%) (Auto) 7 % (24-48) Monocytes (%) (Auto) 8 % (0-9) Eosinophils (%) (Auto) 1 % (0-3) Basophils (%) (Auto) 0 % (0-3) Neutrophils # (Auto) 12.3 x10^3uL (1.8-7.7) Lymphocytes # (Auto) 0.9 x10^3/uL (1.0-4.8) Monocytes # (Auto) 1.1 x10^3/uL (0.0-1.1) Eosinophils # (Auto) 0.1 x10^3/uL (0.0-0.7) Basophils # (Auto) 0.0 x10^3/uL (0.0-0.2) Sodium Level 143 mmol/L (136-145) Potassium Level 3.5 mmol/L (3.5-5.1) Chloride Level 107 mmol/L (98-107) Carbon Dioxide Level 30 mmol/L (21-32) Anion Gap 6 (6-14) Blood Urea Nitrogen 11 mg/dL (8-26) Creatinine 1.1 mg/dL (0.7-1.3) Estimated GFR (Cockcroft-Gault) 77.2 Glucose Level 104 mg/dL (70-99) Calcium Level 9.0 mg/dL (8.5-10.1) Assessment and Plan Assessmemt and Plan Problems Medical Problems: (1) COPD (chronic obstructive pulmonary disease) Status: Acute (2) Dehydration Status: Acute (3) Renal insufficiency Status: Acute Comment Review of Relevant I have reviewed the following items reg (where applicable) has been applied. Labs Laboratory Tests Test 06/14/18 13:55 06/14/18 15:05 06/14/18 20:25 06/14/18 23:20 Urine Collection Type Unknown Urine Color Melania Urine Clarity Clear Urine pH 5.5 Urine Specific [place] 1.020 Urine Protein 30 mg/dL (NEG-TRACE) Urine Glucose (UA) Negative mg/dL (NEG) Urine Ketones (Stick) Trace mg/dL (NEG) Urine Blood Negative (NEG) Urine Nitrite Negative (NEG) Urine Bilirubin Small (NEG) Urine Urobilinogen Dipstick 1.0 mg/dL (0.2 mg/dL) Urine Leukocyte Esterase Small (NEG) Urine RBC 1-2 /HPF (0-2) Urine WBC 5-10 /HPF (0-4) Urine Squamous Epithelial Cells Mod /LPF Urine Bacteria 0 /HPF (0-FEW) Urine Hyaline Casts Moderate /HPF Urine Mucus Marked /LPF White Blood Count 21.2 x10^3/uL (4.0-11.0) Red Blood Count 4.45 x10^6/uL (4.30-5.70) Hemoglobin 13.4 g/dL (13.0-17.5) Hematocrit 40.6 % (39.0-53.0) Mean Corpuscular Volume 91 fL (79-100) Mean Corpuscular Hemoglobin 30 pg (25-35) Mean Corpuscular Hemoglobin Concent 33 g/dL (31-37) Red Cell Distribution Width 13.5 % (11.5-14.5) Platelet Count 196 x10^3/uL (140-400) Neutrophils (%) (Auto) 95 % (31-73) Lymphocytes (%) (Auto) 2 % (24-48) Monocytes (%) (Auto) 3 % (0-9) Eosinophils (%) (Auto) 0 % (0-3) Basophils (%) (Auto) 0 % (0-3) Neutrophils # (Auto) 20.2 x10^3uL (1.8-7.7) Lymphocytes # (Auto) 0.3 x10^3/uL (1.0-4.8) Monocytes # (Auto) 0.7 x10^3/uL (0.0-1.1) Eosinophils # (Auto) 0.0 x10^3/uL (0.0-0.7) Basophils # (Auto) 0.0 x10^3/uL (0.0-0.2) Segmented Neutrophils % 64 % (35-66) Band Neutrophils % 32 % (0-9) Lymphocytes % 1 % (24-48) Monocytes % 3 % (0-10) Platelet Estimate Adequate (ADEQUATE) Sodium Level 138 mmol/L (136-145) Potassium Level 3.3 mmol/L (3.5-5.1) Chloride Level 100 mmol/L (98-107) Carbon Dioxide Level 27 mmol/L (21-32) Anion Gap 11 (6-14) Blood Urea Nitrogen 13 mg/dL (8-26) Creatinine 1.5 mg/dL (0.7-1.3) Estimated GFR (Cockcroft-Gault) 53.9 Glucose Level 164 mg/dL (70-99) Calcium Level 8.4 mg/dL (8.5-10.1) Troponin I Quantitative < 0.017 ng/mL (0.000-0.055) < 0.017 ng/mL (0.000-0.055) < 0.017 ng/mL (0.000-0.055) [id number]-Type Natriuretic Peptide 142 pg/mL (0-449) Procalcitonin 31.28 ng/mL (0.00-0.10) Test 06/15/18 02:50 06/16/18 03:15 Sodium Level 145 mmol/L (136-145) 143 mmol/L (136-145) Potassium Level 4.0 mmol/L (3.5-5.1) 3.5 mmol/L (3.5-5.1) Chloride Level 108 mmol/L (98-107) 107 mmol/L (98-107) Carbon Dioxide Level 30 mmol/L (21-32) 30 mmol/L (21-32) Anion Gap 7 (6-14) 6 (6-14) Blood Urea Nitrogen 13 mg/dL (8-26) 11 mg/dL (8-26) Creatinine 1.1 mg/dL (0.7-1.3) 1.1 mg/dL (0.7-1.3) Estimated GFR (Cockcroft-Gault) 77.2 77.2 Glucose Level 95 mg/dL (70-99) 104 mg/dL (70-99) Calcium Level 8.2 mg/dL (8.5-10.1) 9.0 mg/dL (8.5-10.1) White Blood Count 14.5 x10^3/uL (4.0-11.0) Red Blood Count 4.27 x10^6/uL (4.30-5.70) Hemoglobin 12.9 g/dL (13.0-17.5) Hematocrit 39.1 % (39.0-53.0) Mean Corpuscular Volume 91 fL (79-100) Mean Corpuscular Hemoglobin 30 pg (25-35) Mean Corpuscular Hemoglobin Concent 33 g/dL (31-37) Red Cell Distribution Width 13.3 % (11.5-14.5) Platelet Count 165 x10^3/uL (140-400) Neutrophils (%) (Auto) 85 % (31-73) Lymphocytes (%) (Auto) 7 % (24-48) Monocytes (%) (Auto) 8 % (0-9) Eosinophils (%) (Auto) 1 % (0-3) Basophils (%) (Auto) 0 % (0-3) Neutrophils # (Auto) 12.3 x10^3uL (1.8-7.7) Lymphocytes # (Auto) 0.9 x10^3/uL (1.0-4.8) Monocytes # (Auto) 1.1 x10^3/uL (0.0-1.1) Eosinophils # (Auto) 0.1 x10^3/uL (0.0-0.7) Basophils # (Auto) 0.0 x10^3/uL (0.0-0.2) Laboratory Tests Test 06/16/18 03:15 White Blood Count 14.5 x10^3/uL (4.0-11.0) Red Blood Count 4.27 x10^6/uL (4.30-5.70) Hemoglobin 12.9 g/dL (13.0-17.5) Hematocrit 39.1 % (39.0-53.0) Mean Corpuscular Volume 91 fL (79-100) Mean Corpuscular Hemoglobin 30 pg (25-35) Mean Corpuscular Hemoglobin Concent 33 g/dL (31-37) Red Cell Distribution Width 13.3 % (11.5-14.5) Platelet Count 165 x10^3/uL (140-400) Neutrophils (%) (Auto) 85 % (31-73) Lymphocytes (%) (Auto) 7 % (24-48) Monocytes (%) (Auto) 8 % (0-9) Eosinophils (%) (Auto) 1 % (0-3) Basophils (%) (Auto) 0 % (0-3) Neutrophils # (Auto) 12.3 x10^3uL (1.8-7.7) Lymphocytes # (Auto) 0.9 x10^3/uL (1.0-4.8) Monocytes # (Auto) 1.1 x10^3/uL (0.0-1.1) Eosinophils # (Auto) 0.1 x10^3/uL (0.0-0.7) Basophils # (Auto) 0.0 x10^3/uL (0.0-0.2) Sodium Level 143 mmol/L (136-145) Potassium Level 3.5 mmol/L (3.5-5.1) Chloride Level 107 mmol/L (98-107) Carbon Dioxide Level 30 mmol/L (21-32) Anion Gap 6 (6-14) Blood Urea Nitrogen 11 mg/dL (8-26) Creatinine 1.1 mg/dL (0.7-1.3) Estimated GFR (Cockcroft-Gault) 77.2 Glucose Level 104 mg/dL (70-99) Calcium Level 9.0 mg/dL (8.5-10.1) Microbiology 06/14/18 Blood Culture - Preliminary, Resulted NO GROWTH AFTER 1 DAY Medications Current Medications Albuterol/ Ipratropium (Duoneb) 3 ml 1X ONCE NEB Last administered on at 16:04; Start 06/14/18 at 16:00; Stop 06/14/18 at 16:01; Status DC Sodium Chloride 1,000 ml @ 1,000 mls/hr 1X ONCE IV Last administered on 06/14at 16:29; Start 06/14/18 at 16:30; Stop 06/14/18 at 17:29; Status DC Ondansetron HCl (Zofran) 4 mg PRN Q8HRS PRN IV NAUSEA/VOMITING; Start at 17:15; Stop 06/15/18 at 08:25; Status DC Acetaminophen (Tylenol) 650 mg PRN Q4HRS PRN PO FEVER; Start 06/14/18 at 17:15 ; Stop 06/15/18 at 08:24; Status DC Azithromycin 250 ml @ 250 mls/hr 1X ONCE IV Last administered on 06/14/18at 23:03; Start 06/14/18 at 18:15; Stop 06/14/18 at 19:14; Status DC Ceftriaxone Sodium 50 ml @ 100 mls/hr 1X ONCE IV Last administered on at 18:15; Start 06/14/18 at 18:15; Stop 06/14/18 at 18:44; Status DC Piperacillin Sod/ Tazobactam Sod 3.375 gm/Sodium Chloride 50 ml @ 100 mls/hr Q6HRS IV Last administered on 06/16/18at 11:18; Start 06/15/18 at 09:00 Piperacillin Sod/ Tazobactam Sod (Zosyn Per Pharmacy) 1 each PRN DAILY PRN MC SEE COMMENTS; Start 06/15/18 at 08:30 Acetaminophen (Tylenol) 650 mg PRN Q6HRS PRN PO FEVER; Start 06/15/18 at 08:30 Ondansetron HCl (Zofran) 4 mg PRN Q6HRS PRN IV NAUSEA/VOMITING; Start at 08:30 Morphine Sulfate (Morphine Sulfate) 2 mg PRN Q2HR PRN IV MODERATE TO SEVERE PAIN; Start 06/15/18 at 08:30 Tramadol HCl (Ultram) 50 mg PRN Q6HRS PRN PO MILD TO MODERATE PAIN; Start at 08:30 Docusate Sodium (Colace) 100 mg PRN DAILY PRN PO CONSTIPATION; Start 06/15/18 at 08:30 Furosemide (Lasix) 20 mg DAILY PO Last administered on 06/16/18at 08:24; Start 06/15/18 at 12:00 Prednisone (Prednisone) 10 mg DAILY PO Last administered on 06/16/18at 08:24; Start 06/15/18 at 12:00 Budesonide (Pulmicort) 0.5 mg RTBID NEB Last administered on 06/16/18at 07:45; Start 06/15/18 at 20:00 Albuterol Sulfate (Ventolin Neb Soln) 2.5 mg PRN Q4HRS PRN NEB SHORTNESS OF BREATH; Start 06/15/18 at 12:00 Albuterol Sulfate (Ventolin Neb Soln) 2.5 mg RTQID NEB Last administered on at 11:05; Start 06/15/18 at 12:00 Enoxaparin Sodium (Lovenox 40mg Syringe) 40 mg Q24H SQ Last administered on at 17:30; Start 06/15/18 at 16:00 Active Scripts Active Reported Symbicort 160-4.5 Mcg Inhaler (Budesonide/Formoterol Fumarate) 10.2 Gm Hfa.aer.ad 2 Puff IH BID Furosemide 20 Mg Tablet 20 Mg PO DAILY Prednisone (Prednisone) 10 Mg Tablet 10 Mg PO DAILY Vitals/I & O Vital Sign - Last 24 Hours 06/15/18 06/15/18 06/15/18 06/15/18 15:00 15:16 19:00 19:10 Temp 98.2 98.5 98.2 98.5 Pulse 90 89 Resp 18 18 B/P (MAP) 130/72 (91) 138/78 (98) Pulse Ox 95 94 94 O2 Delivery Room Air Room Air Room Air Room Air 06/15/18 06/15/18 06/16/18 06/16/18 20:00 23:00 03:00 07:00 Temp 98.1 98.4 97.7 98.1 98.4 97.7 Pulse 90 67 86 Resp 18 B/P (MAP) 140/80 (100) 110/54 (72) 136/84 (101) Pulse Ox 95 96 95 O2 Delivery Room Air Room Air Room Air Room Air 06/16/18 06/16/18 06/16/18 06/16/18 07:05 07:10 07:46 08:00 B/P (MAP) 139/87 (104) 128/84 (99) Pulse Ox 96 O2 Delivery Room Air Room Air 06/16/18 06/16/18 06/16/18 08:21 11:00 11:06 Temp 98.3 98.2 98.3 98.2 Pulse 101 101 Resp 20 18 B/P (MAP) 130/81 (97) 150/84 (106) Pulse Ox 95 97 O2 Delivery Room Air Room Air Room Air Intake and Output 06/15/18 06/15/18 06/16/18 15:00 23:00 07:00 Intake Total 410 ml 420 ml 480 ml Balance 410 ml 420 ml 480 ml HASEEB ANTOINE MD Jun 16, 2018 13:36
[2018-06-16] MEDS: ENOXAPARIN 40 MG/0.4 ML SYRINGE. SQ SCH (16:19)
[2018-06-17 03:00] VITALS: BP 143/87
[2018-06-17] MEDS: PIPERACILLIN/TAZOBACTAM 3.375 GM in IV NORMAL SALINE 50ML 50 ML IV SCH ×4 (05:28→23:57)
[2018-06-17 06:16] LABS: BASO % 0 % (0-3); EOS # 0.2 x10^3/uL (0.0-0.7); EOS % 2 % (0-3); HEMATOCRIT 37.7 % (39.0-53.0); HEMOGLOBIN 12.5 g/dL (13.0-17.5); LYMPH # 1.4 x10^3/uL (1.0-4.8); LYMPH % 14 % (24-48); MEAN CORPUSCULAR HEMOGLOBIN 30 pg (25-35); MEAN CORPUSCULAR HGB CONC 33 g/dL (31-37); MEAN CORPUSCULAR VOLUME 91 fL (79-100); MONO # 0.8 x10^3/uL (0.0-1.1); MONO % 8 % (0-9); NEUT # 7.7 x10^3uL (1.8-7.7); NEUT % 76 % (31-73); PLATELET COUNT 172 x10^3/uL (140-400); RED BLOOD COUNT 4.16 x10^6/uL (4.30-5.70); RED CELL DISTRIBUTION WIDTH 13.2 % (11.5-14.5); WHITE BLOOD COUNT 10.1 x10^3/uL (4.0-11.0)
[2018-06-17 06:35] LABS: CALCIUM 8.4 mg/dL (8.5-10.1); CREATININE 1.1 mg/dL (0.7-1.3); GFR 77.2; POTASSIUM 3.3 mmol/L (3.5-5.1)
[2018-06-17 07:00] VITALS: BP 129/77
[2018-06-17] MEDS: BUDESONIDE 0.5 MG/2 ML NEBU. NEB SCH ×2 (07:32→19:31)
[2018-06-17] MEDS: ALBUTEROL SULFATE 2.5 MG/3 ML NEBU. NEB SCH ×4 (07:32→19:30)
[2018-06-17] MEDS: FUROSEMIDE 20 MG TABLET PO SCH (08:14)
[2018-06-17] MEDS: predniSONE 10 MG TABLET PO SCH (08:14)
--- NOTE | 2018-06-17 10:19 | PDOC ---
Infectious Disease Note Subjective: Subjective Pt without complaints today no dizziness no fc/n/v/d/abdo pain/gu symptoms ROS: ROS Negative except for above. Vital Signs: Vital Signs Vital Signs Date Time Temp Pulse Resp B/P (MAP) Pulse Ox O2 Delivery O2 Flow Rate FiO2 06/17/18 07:33 97 Room Air 06/17/18 07:00 97.8 76 18 129/77 (94) 97.8 Physical Exam: PHYSICAL EXAM GENERAL: Alert, oriented x 3 male in no acute distress, pleasant, cooperative. HEENT: Normocephalic, atraumatic, anicteric. No thrush. Oral mucosa moist. NECK: Supple. No JVD. LUNGS: Clear bilaterally. No wheezing. HEART: S1, S2. No rubs, gallops or murmurs. ABDOMEN: Soft, nontender, nondistended. No rebound, no guarding. EXTREMITIES: No edema, no cyanosis, no clubbing. BACK: Reveals normal curvature. No CVA tenderness. NEUROLOGIC: Alert and oriented x 3. Grossly nonfocal. PSYCHIATRIC: Cooperative, appropriate mood and affect. Medications: Inpatient Meds: Current Medications Medications (Trade) Dose Ordered Sig/Lacie Start Time Stop Time Status Last Admin Dose Admin Acetaminophen (Tylenol) 650 mg PRN Q6HRS PRN 06/15/18 08:30 Albuterol Sulfate (Ventolin Neb Soln) 2.5 mg RTQID 06/15/18 12:00 06/17/18 07:32 2.5 MG Albuterol/ Ipratropium (Duoneb) 3 ml 1X ONCE 06/14/18 16:00 06/14/18 16:01 DC 06/14/18 16:04 3 ML Azithromycin 250 ml @ 250 mls/hr 1X ONCE 06/14/18 18:15 06/14/18 19:14 DC 06/14/18 23:03 250 MLS/HR Budesonide (Pulmicort) 0.5 mg RTBID 06/15/18 20:00 06/17/18 07:32 0.5 MG Ceftriaxone Sodium 50 ml @ 100 mls/hr 1X ONCE 06/14/18 18:15 06/14/18 18:44 DC 06/14/18 18:15 100 MLS/HR Docusate Sodium (Colace) 100 mg PRN DAILY PRN 06/15/18 08:30 Enoxaparin Sodium (Lovenox 40mg Syringe) 40 mg Q24H 06/15/18 16:00 06/16/18 16:19 40 MG Furosemide (Lasix) 20 mg DAILY 06/15/18 12:00 06/17/18 08:14 20 MG Morphine Sulfate (Morphine Sulfate) 2 mg PRN Q2HR PRN 06/15/18 08:30 Ondansetron HCl (Zofran) 4 mg PRN Q6HRS PRN 06/15/18 08:30 Piperacillin Sod/ Tazobactam Sod (Zosyn Per Pharmacy) 1 each PRN DAILY PRN 06/15/18 08:30 Piperacillin Sod/ Tazobactam Sod 3.375 gm/Sodium Chloride 50 ml @ 100 mls/hr Q6HRS 06/15/18 09:00 06/17/18 05:28 100 MLS/HR Prednisone (Prednisone) 10 mg DAILY 06/15/18 12:00 06/17/18 08:14 10 MG Sodium Chloride 1,000 ml @ 1,000 mls/hr 1X ONCE 06/14/18 16:30 06/14/18 17:29 DC 06/14/18 16:29 1,000 MLS/HR Tramadol HCl (Ultram) 50 mg PRN Q6HRS PRN 06/15/18 08:30 Labs: Lab Laboratory Tests Test 06/17/18 04:30 06/17/18 04:50 White Blood Count 10.1 x10^3/uL (4.0-11.0) Red Blood Count 4.16 x10^6/uL (4.30-5.70) Hemoglobin 12.5 g/dL (13.0-17.5) Hematocrit 37.7 % (39.0-53.0) Mean Corpuscular Volume 91 fL (79-100) Mean Corpuscular Hemoglobin 30 pg (25-35) Mean Corpuscular Hemoglobin Concent 33 g/dL (31-37) Red Cell Distribution Width 13.2 % (11.5-14.5) Platelet Count 172 x10^3/uL (140-400) Neutrophils (%) (Auto) 76 % (31-73) Lymphocytes (%) (Auto) 14 % (24-48) Monocytes (%) (Auto) 8 % (0-9) Eosinophils (%) (Auto) 2 % (0-3) Basophils (%) (Auto) 0 % (0-3) Neutrophils # (Auto) 7.7 x10^3uL (1.8-7.7) Lymphocytes # (Auto) 1.4 x10^3/uL (1.0-4.8) Monocytes # (Auto) 0.8 x10^3/uL (0.0-1.1) Eosinophils # (Auto) 0.2 x10^3/uL (0.0-0.7) Basophils # (Auto) 0.0 x10^3/uL (0.0-0.2) Sodium Level 146 mmol/L (136-145) Potassium Level 3.3 mmol/L (3.5-5.1) Chloride Level 108 mmol/L (98-107) Carbon Dioxide Level 28 mmol/L (21-32) Anion Gap 10 (6-14) Blood Urea Nitrogen 11 mg/dL (8-26) Creatinine 1.1 mg/dL (0.7-1.3) Estimated GFR (Cockcroft-Gault) 77.2 Glucose Level 98 mg/dL (70-99) Calcium Level 8.4 mg/dL (8.5-10.1) Micro RUN DATE: 06/15/18 PAGE 1 RUN TIME: 08 [facility] [address] [place] [address] Iván Sim M.D., [employer] PATIENT: ANNALEE AUSTIN ACCT: [id number] LOC: [address] [place] [address] U : [id number] AGE/SX: 82/M ROOM: [facility] REG : 06/14/[address]: SLY CAIN MD : [id number] BED: 1 DIS : STATUS: ADM Taylor TLOC: SPEC #: [id number] FRED: 06/14/18 STATUS: COMP REQ #: [id number] RECD: 06/14/[address] [facility] [address]: MARLENY VILLAREAL DO SOURCE: BLOOD ENTR: 06/14/[address] [facility] [address]: VAL COLLINS MD [facility]: UNKNOWN PCP NAME ORDERED: BCULT Procedure Result BLOOD CULTURE Final GRAM NEGATIVE RODS IN 1 OF 4 BOTTLES (2 SETS DRAWN). CALLED TO SERAFIN VALERIO ON 5N 06/15/18804 BY Lucía NAPOLES. CULTURE HAS BEEN SENT TO [facility] FOR FURTHER IDENTIFICATION. Objective: Assessment: 1. Gram-negative sepsis,1/4 bottles positive, source unclear, could be a contaminant 2. Leukocytosis could be multifactorial, on steroids prior to admission. 3. Pyuria. Urine culture pending. 4. Chronic obstructive pulmonary disease. on steroids 5. Immunosuppression on steroids. 6. Acute kidney injury. 7. Bandemia. 8. Generalized weakness, improved. 9. Hypertension. Plan: Plan of Care Continue empiric Zosyn. Follow up culture and susceptibility results. Follow up urine cultures. Continue supportive care. D/W ANTHONY Valverde MD Jun 17, 2018 10:19
[2018-06-17 11:00] VITALS: BP 130/75
[2018-06-17] MEDS ORDERED: POTASSIUM CHLORIDE 20 MEQ TABLET.ER. PO ONE (11:45)
--- NOTE | 2018-06-17 13:39 | PDOC ---
PROGRESS NOTES Chief Complaint Chief Complaint generalized weakness 1/4 + bacteremia MILAGRO, vasomotor copd stable leukocytosis, on prednisone 10mg daily hypokalemia plan: id consulted add zosyn for now, fu bcx, fu ucx cont home meds add albuterol prn dvt ppx replete k PTOT History of Present Illness History of Present Illness ROS: no fever, chills, sob or chest pain cr much better feels ok no weakness wbc BETTER TO 10 Vitals Vitals Vital Signs Date Time Temp Pulse Resp B/P (MAP) Pulse Ox O2 Delivery O2 Flow Rate FiO2 06/17/18 11:48 Room Air 06/17/18 11:00 97.9 72 18 130/75 (93) 96 97.9 Physical Exam Physical Exam GENERAL: Alert, oriented x 3 male in no acute distress, pleasant, cooperative. HEENT: Normocephalic, atraumatic, anicteric. No thrush. Oral mucosa moist. NECK: Supple. No JVD. LUNGS: Clear bilaterally. No wheezing. HEART: S1, S2. No rubs, gallops or murmurs. ABDOMEN: Soft, nontender, nondistended. No rebound, no guarding. EXTREMITIES: No edema, no cyanosis, no clubbing. BACK: Reveals normal curvature. No CVA tenderness. NEUROLOGIC: Alert and oriented x 3. Grossly nonfocal. PSYCHIATRIC: Cooperative, appropriate mood and affect. Lungs: Wheezing, Crackles Labs LABS Laboratory Tests Test 06/17/18 04:30 06/17/18 04:50 White Blood Count 10.1 x10^3/uL (4.0-11.0) Red Blood Count 4.16 x10^6/uL (4.30-5.70) Hemoglobin 12.5 g/dL (13.0-17.5) Hematocrit 37.7 % (39.0-53.0) Mean Corpuscular Volume 91 fL (79-100) Mean Corpuscular Hemoglobin 30 pg (25-35) Mean Corpuscular Hemoglobin Concent 33 g/dL (31-37) Red Cell Distribution Width 13.2 % (11.5-14.5) Platelet Count 172 x10^3/uL (140-400) Neutrophils (%) (Auto) 76 % (31-73) Lymphocytes (%) (Auto) 14 % (24-48) Monocytes (%) (Auto) 8 % (0-9) Eosinophils (%) (Auto) 2 % (0-3) Basophils (%) (Auto) 0 % (0-3) Neutrophils # (Auto) 7.7 x10^3uL (1.8-7.7) Lymphocytes # (Auto) 1.4 x10^3/uL (1.0-4.8) Monocytes # (Auto) 0.8 x10^3/uL (0.0-1.1) Eosinophils # (Auto) 0.2 x10^3/uL (0.0-0.7) Basophils # (Auto) 0.0 x10^3/uL (0.0-0.2) Sodium Level 146 mmol/L (136-145) Potassium Level 3.3 mmol/L (3.5-5.1) Chloride Level 108 mmol/L (98-107) Carbon Dioxide Level 28 mmol/L (21-32) Anion Gap 10 (6-14) Blood Urea Nitrogen 11 mg/dL (8-26) Creatinine 1.1 mg/dL (0.7-1.3) Estimated GFR (Cockcroft-Gault) 77.2 Glucose Level 98 mg/dL (70-99) Calcium Level 8.4 mg/dL (8.5-10.1) Assessment and Plan Assessmemt and Plan Problems Medical Problems: (1) COPD (chronic obstructive pulmonary disease) Status: Acute (2) Dehydration Status: Acute (3) Renal insufficiency Status: Acute Comment Review of Relevant I have reviewed the following items reg (where applicable) has been applied. Labs Laboratory Tests Test 06/16/18 03:15 06/17/18 04:30 06/17/18 04:50 White Blood Count 14.5 x10^3/uL (4.0-11.0) 10.1 x10^3/uL (4.0-11.0) Red Blood Count 4.27 x10^6/uL (4.30-5.70) 4.16 x10^6/uL (4.30-5.70) Hemoglobin 12.9 g/dL (13.0-17.5) 12.5 g/dL (13.0-17.5) Hematocrit 39.1 % (39.0-53.0) 37.7 % (39.0-53.0) Mean Corpuscular Volume 91 fL (79-100) 91 fL (79-100) Mean Corpuscular Hemoglobin 30 pg (25-35) 30 pg (25-35) Mean Corpuscular Hemoglobin Concent 33 g/dL (31-37) 33 g/dL (31-37) Red Cell Distribution Width 13.3 % (11.5-14.5) 13.2 % (11.5-14.5) Platelet Count 165 x10^3/uL (140-400) 172 x10^3/uL (140-400) Neutrophils (%) (Auto) 85 % (31-73) 76 % (31-73) Lymphocytes (%) (Auto) 7 % (24-48) 14 % (24-48) Monocytes (%) (Auto) 8 % (0-9) 8 % (0-9) Eosinophils (%) (Auto) 1 % (0-3) 2 % (0-3) Basophils (%) (Auto) 0 % (0-3) 0 % (0-3) Neutrophils # (Auto) 12.3 x10^3uL (1.8-7.7) 7.7 x10^3uL (1.8-7.7) Lymphocytes # (Auto) 0.9 x10^3/uL (1.0-4.8) 1.4 x10^3/uL (1.0-4.8) Monocytes # (Auto) 1.1 x10^3/uL (0.0-1.1) 0.8 x10^3/uL (0.0-1.1) Eosinophils # (Auto) 0.1 x10^3/uL (0.0-0.7) 0.2 x10^3/uL (0.0-0.7) Basophils # (Auto) 0.0 x10^3/uL (0.0-0.2) 0.0 x10^3/uL (0.0-0.2) Sodium Level 143 mmol/L (136-145) 146 mmol/L (136-145) Potassium Level 3.5 mmol/L (3.5-5.1) 3.3 mmol/L (3.5-5.1) Chloride Level 107 mmol/L (98-107) 108 mmol/L (98-107) Carbon Dioxide Level 30 mmol/L (21-32) 28 mmol/L (21-32) Anion Gap 6 (6-14) 10 (6-14) Blood Urea Nitrogen 11 mg/dL (8-26) 11 mg/dL (8-26) Creatinine 1.1 mg/dL (0.7-1.3) 1.1 mg/dL (0.7-1.3) Estimated GFR (Cockcroft-Gault) 77.2 77.2 Glucose Level 104 mg/dL (70-99) 98 mg/dL (70-99) Calcium Level 9.0 mg/dL (8.5-10.1) 8.4 mg/dL (8.5-10.1) Laboratory Tests Test 06/17/18 04:30 06/17/18 04:50 White Blood Count 10.1 x10^3/uL (4.0-11.0) Red Blood Count 4.16 x10^6/uL (4.30-5.70) Hemoglobin 12.5 g/dL (13.0-17.5) Hematocrit 37.7 % (39.0-53.0) Mean Corpuscular Volume 91 fL (79-100) Mean Corpuscular Hemoglobin 30 pg (25-35) Mean Corpuscular Hemoglobin Concent 33 g/dL (31-37) Red Cell Distribution Width 13.2 % (11.5-14.5) Platelet Count 172 x10^3/uL (140-400) Neutrophils (%) (Auto) 76 % (31-73) Lymphocytes (%) (Auto) 14 % (24-48) Monocytes (%) (Auto) 8 % (0-9) Eosinophils (%) (Auto) 2 % (0-3) Basophils (%) (Auto) 0 % (0-3) Neutrophils # (Auto) 7.7 x10^3uL (1.8-7.7) Lymphocytes # (Auto) 1.4 x10^3/uL (1.0-4.8) Monocytes # (Auto) 0.8 x10^3/uL (0.0-1.1) Eosinophils # (Auto) 0.2 x10^3/uL (0.0-0.7) Basophils # (Auto) 0.0 x10^3/uL (0.0-0.2) Sodium Level 146 mmol/L (136-145) Potassium Level 3.3 mmol/L (3.5-5.1) Chloride Level 108 mmol/L (98-107) Carbon Dioxide Level 28 mmol/L (21-32) Anion Gap 10 (6-14) Blood Urea Nitrogen 11 mg/dL (8-26) Creatinine 1.1 mg/dL (0.7-1.3) Estimated GFR (Cockcroft-Gault) 77.2 Glucose Level 98 mg/dL (70-99) Calcium Level 8.4 mg/dL (8.5-10.1) Microbiology 06/16/18 Blood Culture - Preliminary, Resulted NO GROWTH AFTER 1 DAY 06/14/18 Urine Culture - Final, Complete 06/14/18 Urine Culture Result 1 (EMIR) - Final, Complete Medications Current Medications Albuterol/ Ipratropium (Duoneb) 3 ml 1X ONCE NEB Last administered on at 16:04; Start 06/14/18 at 16:00; Stop 06/14/18 at 16:01; Status DC Sodium Chloride 1,000 ml @ 1,000 mls/hr 1X ONCE IV Last administered on 06/14at 16:29; Start 06/14/18 at 16:30; Stop 06/14/18 at 17:29; Status DC Ondansetron HCl (Zofran) 4 mg PRN Q8HRS PRN IV NAUSEA/VOMITING; Start at 17:15; Stop 06/15/18 at 08:25; Status DC Acetaminophen (Tylenol) 650 mg PRN Q4HRS PRN PO FEVER; Start 06/14/18 at 17:15 ; Stop 06/15/18 at 08:24; Status DC Azithromycin 250 ml @ 250 mls/hr 1X ONCE IV Last administered on 06/14/18at 23:03; Start 06/14/18 at 18:15; Stop 06/14/18 at 19:14; Status DC Ceftriaxone Sodium 50 ml @ 100 mls/hr 1X ONCE IV Last administered on at 18:15; Start 06/14/18 at 18:15; Stop 06/14/18 at 18:44; Status DC Piperacillin Sod/ Tazobactam Sod 3.375 gm/Sodium Chloride 50 ml @ 100 mls/hr Q6HRS IV Last administered on 06/17/18at 11:50; Start 06/15/18 at 09:00 Piperacillin Sod/ Tazobactam Sod (Zosyn Per Pharmacy) 1 each PRN DAILY PRN MC SEE COMMENTS; Start 06/15/18 at 08:30 Acetaminophen (Tylenol) 650 mg PRN Q6HRS PRN PO FEVER; Start 06/15/18 at 08:30 Ondansetron HCl (Zofran) 4 mg PRN Q6HRS PRN IV NAUSEA/VOMITING; Start at 08:30 Morphine Sulfate (Morphine Sulfate) 2 mg PRN Q2HR PRN IV MODERATE TO SEVERE PAIN; Start 06/15/18 at 08:30 Tramadol HCl (Ultram) 50 mg PRN Q6HRS PRN PO MILD TO MODERATE PAIN; Start at 08:30 Docusate Sodium (Colace) 100 mg PRN DAILY PRN PO CONSTIPATION; Start 06/15/18 at 08:30 Furosemide (Lasix) 20 mg DAILY PO Last administered on 06/17/18at 08:14; Start 06/15/18 at 12:00 Prednisone (Prednisone) 10 mg DAILY PO Last administered on 06/17/18at 08:14; Start 06/15/18 at 12:00 Budesonide (Pulmicort) 0.5 mg RTBID NEB Last administered on 06/17/18at 07:32; Start 06/15/18 at 20:00 Albuterol Sulfate (Ventolin Neb Soln) 2.5 mg PRN Q4HRS PRN NEB SHORTNESS OF BREATH; Start 06/15/18 at 12:00 Albuterol Sulfate (Ventolin Neb Soln) 2.5 mg RTQID NEB Last administered on at 11:48; Start 06/15/18 at 12:00 Enoxaparin Sodium (Lovenox 40mg Syringe) 40 mg Q24H SQ Last administered on at 16:19; Start 06/15/18 at 16:00 Potassium Chloride (Klor-Con) 40 meq 1X ONCE PO Last administered on at 11:50; Start 06/17/18 at 11:45; Stop 06/17/18 at 11:46; Status DC Active Scripts Active Reported Symbicort 160-4.5 Mcg Inhaler (Budesonide/Formoterol Fumarate) 10.2 Gm Hfa.aer.ad 2 Puff IH BID Furosemide 20 Mg Tablet 20 Mg PO DAILY Prednisone (Prednisone) 10 Mg Tablet 10 Mg PO DAILY Vitals/I & O Vital Sign - Last 24 Hours 06/16/18 06/16/18 06/16/18 06/16/18 15:00 15:21 19:00 19:33 Temp 97.9 98.3 97.9 98.3 Pulse 94 79 Resp 20 20 B/P (MAP) 139/79 (99) 129/79 (96) Pulse Ox 96 96 O2 Delivery Room Air Room Air Room Air Room Air 06/16/18 06/16/18 06/16/18 06/17/18 19:59 20:01 23:00 03:00 Temp 98.3 98.3 98.3 98.3 Pulse 80 81 Resp 20 20 B/P (MAP) 143/81 (101) 143/87 (105) Pulse Ox 97 97 96 97 O2 Delivery Room Air Room Air Room Air Room Air 06/17/18 06/17/18 06/17/18 06/17/18 07:00 07:33 08:00 11:00 Temp 97.8 97.9 97.8 97.9 Pulse 76 72 Resp 18 18 B/P (MAP) 129/77 (94) 130/75 (93) Pulse Ox 96 97 96 O2 Delivery Room Air Room Air Room Air Room Air 06/17/18 11:48 O2 Delivery Room Air Intake and Output 06/16/18 06/16/18 06/17/18 15:00 23:00 07:00 Intake Total 480 ml 1160 ml 360 ml Output Total 300 ml Balance 480 ml 860 ml 360 ml HASEEB ANTOINE MD Jun 17, 2018 13:39
[2018-06-17 15:00] VITALS: BP 132/71
[2018-06-17] MEDS: ENOXAPARIN 40 MG/0.4 ML SYRINGE. SQ SCH (17:58)
[2018-06-17 19:00] VITALS: BP 138/82
[2018-06-17 23:00] VITALS: BP 126/61
[2018-06-18 03:00] VITALS: BP 139/87
[2018-06-18 05:58] LABS: BASO % 0 % (0-3); CALCIUM 8.5 mg/dL (8.5-10.1); EOS # 0.2 x10^3/uL (0.0-0.7); EOS % 2 % (0-3); GFR 86.1; HEMATOCRIT 37.6 % (39.0-53.0); HEMOGLOBIN 12.4 g/dL (13.0-17.5); LYMPH # 1.4 x10^3/uL (1.0-4.8); LYMPH % 19 % (24-48); MEAN CORPUSCULAR HEMOGLOBIN 30 pg (25-35); MEAN CORPUSCULAR HGB CONC 33 g/dL (31-37); MEAN CORPUSCULAR VOLUME 91 fL (79-100); MONO # 0.7 x10^3/uL (0.0-1.1); MONO % 9 % (0-9); NEUT # 5.5 x10^3uL (1.8-7.7); NEUT % 70 % (31-73); PLATELET COUNT 181 x10^3/uL (140-400); POTASSIUM 3.3 mmol/L (3.5-5.1); RED BLOOD COUNT 4.16 x10^6/uL (4.30-5.70); RED CELL DISTRIBUTION WIDTH 13.2 % (11.5-14.5); WHITE BLOOD COUNT 7.8 x10^3/uL (4.0-11.0)
[2018-06-18] MEDS: PIPERACILLIN/TAZOBACTAM 3.375 GM in IV NORMAL SALINE 50ML 50 ML IV SCH ×3 (06:22→17:22)
[2018-06-18 07:00] VITALS: BP 145/90
[2018-06-18] MEDS: BUDESONIDE 0.5 MG/2 ML NEBU. NEB SCH ×2 (07:57→19:30)
[2018-06-18] MEDS: ALBUTEROL SULFATE 2.5 MG/3 ML NEBU. NEB SCH ×4 (07:57→19:30)
--- NOTE | 2018-06-18 08:11 | PDOC ---
PROGRESS NOTES Chief Complaint Chief Complaint generalized weakness 1/4 + bacteremia MILAGRO, vasomotor copd stable leukocytosis, on prednisone 10mg daily hypokalemia History of Present Illness History of Present Illness Admitted with renal failure, weakness, bacteremia, hypokalemia. Feeling improved, renal function improved, no longer weak, normal WBC, has been on zosyn. GNR on blood culture, still not with final culture yet. ROS: no fever, chills, sob or chest pain generalized weakness 1/4 + bacteremia MILAGRO, vasomotor copd stable leukocytosis, on prednisone 10mg daily hypokalemia plan: id consulted added zosyn for now, fu bcx, fu ucx cont home meds add albuterol prn dvt ppx repleted k PTOT Home on antibiotics, likely tomorrow, will d/w ID Vitals Vitals Vital Signs Date Time Temp Pulse Resp B/P (MAP) Pulse Ox O2 Delivery O2 Flow Rate FiO2 06/18/18 07:58 98 Room Air 06/18/18 03:00 97.7 78 18 139/87 (104) 97.7 Physical Exam Physical Exam GENERAL: Alert, oriented x 3 male in no acute distress, pleasant, cooperative. HEENT: Normocephalic, atraumatic, anicteric. No thrush. Oral mucosa moist. NECK: Supple. No JVD. LUNGS: Clear bilaterally. No wheezing. HEART: S1, S2. No rubs, gallops or murmurs. ABDOMEN: Soft, nontender, nondistended. No rebound, no guarding. EXTREMITIES: No edema, no cyanosis, no clubbing. BACK: Reveals normal curvature. No CVA tenderness. NEUROLOGIC: Alert and oriented x 3. Grossly nonfocal. PSYCHIATRIC: Cooperative, appropriate mood and affect. Lungs: Wheezing, Crackles Labs LABS Laboratory Tests Test 06/18/18 04:05 White Blood Count 7.8 x10^3/uL (4.0-11.0) Red Blood Count 4.16 x10^6/uL (4.30-5.70) Hemoglobin 12.4 g/dL (13.0-17.5) Hematocrit 37.6 % (39.0-53.0) Mean Corpuscular Volume 91 fL (79-100) Mean Corpuscular Hemoglobin 30 pg (25-35) Mean Corpuscular Hemoglobin Concent 33 g/dL (31-37) Red Cell Distribution Width 13.2 % (11.5-14.5) Platelet Count 181 x10^3/uL (140-400) Neutrophils (%) (Auto) 70 % (31-73) Lymphocytes (%) (Auto) 19 % (24-48) Monocytes (%) (Auto) 9 % (0-9) Eosinophils (%) (Auto) 2 % (0-3) Basophils (%) (Auto) 0 % (0-3) Neutrophils # (Auto) 5.5 x10^3uL (1.8-7.7) Lymphocytes # (Auto) 1.4 x10^3/uL (1.0-4.8) Monocytes # (Auto) 0.7 x10^3/uL (0.0-1.1) Eosinophils # (Auto) 0.2 x10^3/uL (0.0-0.7) Basophils # (Auto) 0.0 x10^3/uL (0.0-0.2) Sodium Level 147 mmol/L (136-145) Potassium Level 3.3 mmol/L (3.5-5.1) Chloride Level 109 mmol/L (98-107) Carbon Dioxide Level 29 mmol/L (21-32) Anion Gap 9 (6-14) Blood Urea Nitrogen 10 mg/dL (8-26) Creatinine 1.0 mg/dL (0.7-1.3) Estimated GFR (Cockcroft-Gault) 86.1 Glucose Level 98 mg/dL (70-99) Calcium Level 8.5 mg/dL (8.5-10.1) Assessment and Plan Assessmemt and Plan Problems Medical Problems: (1) COPD (chronic obstructive pulmonary disease) Status: Acute (2) Dehydration Status: Acute (3) Renal insufficiency Status: Acute Comment Review of Relevant I have reviewed the following items reg (where applicable) has been applied. Labs Laboratory Tests Test 06/17/18 04:30 06/17/18 04:50 06/18/18 04:05 White Blood Count 10.1 x10^3/uL (4.0-11.0) 7.8 x10^3/uL (4.0-11.0) Red Blood Count 4.16 x10^6/uL (4.30-5.70) 4.16 x10^6/uL (4.30-5.70) Hemoglobin 12.5 g/dL (13.0-17.5) 12.4 g/dL (13.0-17.5) Hematocrit 37.7 % (39.0-53.0) 37.6 % (39.0-53.0) Mean Corpuscular Volume 91 fL (79-100) 91 fL (79-100) Mean Corpuscular Hemoglobin 30 pg (25-35) 30 pg (25-35) Mean Corpuscular Hemoglobin Concent 33 g/dL (31-37) 33 g/dL (31-37) Red Cell Distribution Width 13.2 % (11.5-14.5) 13.2 % (11.5-14.5) Platelet Count 172 x10^3/uL (140-400) 181 x10^3/uL (140-400) Neutrophils (%) (Auto) 76 % (31-73) 70 % (31-73) Lymphocytes (%) (Auto) 14 % (24-48) 19 % (24-48) Monocytes (%) (Auto) 8 % (0-9) 9 % (0-9) Eosinophils (%) (Auto) 2 % (0-3) 2 % (0-3) Basophils (%) (Auto) 0 % (0-3) 0 % (0-3) Neutrophils # (Auto) 7.7 x10^3uL (1.8-7.7) 5.5 x10^3uL (1.8-7.7) Lymphocytes # (Auto) 1.4 x10^3/uL (1.0-4.8) 1.4 x10^3/uL (1.0-4.8) Monocytes # (Auto) 0.8 x10^3/uL (0.0-1.1) 0.7 x10^3/uL (0.0-1.1) Eosinophils # (Auto) 0.2 x10^3/uL (0.0-0.7) 0.2 x10^3/uL (0.0-0.7) Basophils # (Auto) 0.0 x10^3/uL (0.0-0.2) 0.0 x10^3/uL (0.0-0.2) Sodium Level 146 mmol/L (136-145) 147 mmol/L (136-145) Potassium Level 3.3 mmol/L (3.5-5.1) 3.3 mmol/L (3.5-5.1) Chloride Level 108 mmol/L (98-107) 109 mmol/L (98-107) Carbon Dioxide Level 28 mmol/L (21-32) 29 mmol/L (21-32) Anion Gap 10 (6-14) 9 (6-14) Blood Urea Nitrogen 11 mg/dL (8-26) 10 mg/dL (8-26) Creatinine 1.1 mg/dL (0.7-1.3) 1.0 mg/dL (0.7-1.3) Estimated GFR (Cockcroft-Gault) 77.2 86.1 Glucose Level 98 mg/dL (70-99) 98 mg/dL (70-99) Calcium Level 8.4 mg/dL (8.5-10.1) 8.5 mg/dL (8.5-10.1) Laboratory Tests Test 06/18/18 04:05 White Blood Count 7.8 x10^3/uL (4.0-11.0) Red Blood Count 4.16 x10^6/uL (4.30-5.70) Hemoglobin 12.4 g/dL (13.0-17.5) Hematocrit 37.6 % (39.0-53.0) Mean Corpuscular Volume 91 fL (79-100) Mean Corpuscular Hemoglobin 30 pg (25-35) Mean Corpuscular Hemoglobin Concent 33 g/dL (31-37) Red Cell Distribution Width 13.2 % (11.5-14.5) Platelet Count 181 x10^3/uL (140-400) Neutrophils (%) (Auto) 70 % (31-73) Lymphocytes (%) (Auto) 19 % (24-48) Monocytes (%) (Auto) 9 % (0-9) Eosinophils (%) (Auto) 2 % (0-3) Basophils (%) (Auto) 0 % (0-3) Neutrophils # (Auto) 5.5 x10^3uL (1.8-7.7) Lymphocytes # (Auto) 1.4 x10^3/uL (1.0-4.8) Monocytes # (Auto) 0.7 x10^3/uL (0.0-1.1) Eosinophils # (Auto) 0.2 x10^3/uL (0.0-0.7) Basophils # (Auto) 0.0 x10^3/uL (0.0-0.2) Sodium Level 147 mmol/L (136-145) Potassium Level 3.3 mmol/L (3.5-5.1) Chloride Level 109 mmol/L (98-107) Carbon Dioxide Level 29 mmol/L (21-32) Anion Gap 9 (6-14) Blood Urea Nitrogen 10 mg/dL (8-26) Creatinine 1.0 mg/dL (0.7-1.3) Estimated GFR (Cockcroft-Gault) 86.1 Glucose Level 98 mg/dL (70-99) Calcium Level 8.5 mg/dL (8.5-10.1) Microbiology 06/16/18 Blood Culture - Preliminary, Resulted NO GROWTH AFTER 2 DAYS 06/14/18 Urine Culture - Final, Complete 06/14/18 Urine Culture Result 1 (EMIR) - Final, Complete Medications Current Medications Albuterol/ Ipratropium (Duoneb) 3 ml 1X ONCE NEB Last administered on at 16:04; Start 06/14/18 at 16:00; Stop 06/14/18 at 16:01; Status DC Sodium Chloride 1,000 ml @ 1,000 mls/hr 1X ONCE IV Last administered on 06/14at 16:29; Start 06/14/18 at 16:30; Stop 06/14/18 at 17:29; Status DC Ondansetron HCl (Zofran) 4 mg PRN Q8HRS PRN IV NAUSEA/VOMITING; Start at 17:15; Stop 06/15/18 at 08:25; Status DC Acetaminophen (Tylenol) 650 mg PRN Q4HRS PRN PO FEVER; Start 06/14/18 at 17:15 ; Stop 06/15/18 at 08:24; Status DC Azithromycin 250 ml @ 250 mls/hr 1X ONCE IV Last administered on 06/14/18at 23:03; Start 06/14/18 at 18:15; Stop 06/14/18 at 19:14; Status DC Ceftriaxone Sodium 50 ml @ 100 mls/hr 1X ONCE IV Last administered on at 18:15; Start 06/14/18 at 18:15; Stop 06/14/18 at 18:44; Status DC Piperacillin Sod/ Tazobactam Sod 3.375 gm/Sodium Chloride 50 ml @ 100 mls/hr Q6HRS IV Last administered on 06/18/18at 06:22; Start 06/15/18 at 09:00 Piperacillin Sod/ Tazobactam Sod (Zosyn Per Pharmacy) 1 each PRN DAILY PRN [facility] SEE COMMENTS; Start 06/15/18 at 08:30 Acetaminophen (Tylenol) 650 mg PRN Q6HRS PRN PO FEVER; Start 06/15/18 at 08:30 Ondansetron HCl (Zofran) 4 mg PRN Q6HRS PRN IV NAUSEA/VOMITING; Start at 08:30 Morphine Sulfate (Morphine Sulfate) 2 mg PRN Q2HR PRN IV MODERATE TO SEVERE PAIN; Start 06/15/18 at 08:30 Tramadol HCl (Ultram) 50 mg PRN Q6HRS PRN PO MILD TO MODERATE PAIN; Start at 08:30 Docusate Sodium (Colace) 100 mg PRN DAILY PRN PO CONSTIPATION; Start 06/15/18 at 08:30 Furosemide (Lasix) 20 mg DAILY PO Last administered on 06/17/18at 08:14; Start 06/15/18 at 12:00 Prednisone (Prednisone) 10 mg DAILY PO Last administered on 06/17/18at 08:14; Start 06/15/18 at 12:00 Budesonide (Pulmicort) 0.5 mg RTBID NEB Last administered on 06/18/18at 07:57; Start 06/15/18 at 20:00 Albuterol Sulfate (Ventolin Neb Soln) 2.5 mg PRN Q4HRS PRN NEB SHORTNESS OF BREATH; Start 06/15/18 at 12:00 Albuterol Sulfate (Ventolin Neb Soln) 2.5 mg RTQID NEB Last administered on 06/18/18at 07:57; Start 06/15/18 at 12:00 Enoxaparin Sodium (Lovenox 40mg Syringe) 40 mg Q24H SQ Last administered on at 17:58; Start 06/15/18 at 16:00 Potassium Chloride (Klor-Con) 40 meq 1X ONCE PO Last administered on at 11:50; Start 06/17/18 at 11:45; Stop 06/17/18 at 11:46; Status DC Active Scripts Active Reported Symbicort 160-4.5 Mcg Inhaler (Budesonide/Formoterol Fumarate) 10.2 Gm Hfa.aer.ad 2 Puff IH BID Furosemide 20 Mg Tablet 20 Mg PO DAILY Prednisone (Prednisone) 10 Mg Tablet 10 Mg PO DAILY Vitals/I & O Vital Sign - Last 24 Hours 06/17/18 06/17/18 06/17/18 06/17/18 11:00 11:48 15:00 15:51 Temp 97.9 97.9 97.9 97.9 Pulse 72 78 Resp 18 18 B/P (MAP) 130/75 (93) 132/71 (91) Pulse Ox 96 96 O2 Delivery Room Air Room Air Room Air Room Air 06/17/18 06/17/18 06/17/18 06/17/18 19:00 19:31 19:33 20:11 Temp 97.7 97.7 Pulse 75 Resp 18 B/P (MAP) 138/82 (100) Pulse Ox 98 98 98 O2 Delivery Room Air Room Air Room Air Room Air 06/17/18 06/18/18 06/18/18 23:00 03:00 07:58 Temp 98.1 97.7 98.1 97.7 Pulse 82 78 Resp 18 18 B/P (MAP) 126/61 (82) 139/87 (104) Pulse Ox 96 98 98 O2 Delivery Room Air Room Air Room Air Intake and Output 06/17/18 06/17/18 06/18/18 15:00 23:00 07:00 Intake Total 360 ml 180 ml Output Total 0 ml Balance 360 ml 180 ml 0 ml ROBYN MAURICIO MD Jun 18, 2018 08:11
[2018-06-18] MEDS ORDERED: POTASSIUM CHLORIDE 20 MEQ TABLET.ER. PO ONE (08:30)
[2018-06-18] MEDS: FUROSEMIDE 20 MG TABLET PO SCH (08:34)
[2018-06-18] MEDS: predniSONE 10 MG TABLET PO SCH (08:34)
[2018-06-18 11:00] VITALS: BP 135/70
--- NOTE | 2018-06-18 12:48 | PDOC ---
Infectious Disease Note Subjective Subjective Feeling pretty good Walked earlier Hungry, about to eat lunch + loose stools Denies pain/cramps/bloating No F/C ROS ROS Per HPI otherwise neg Vital Sign Vital Signs Vital Signs Date Time Temp Pulse Resp B/P (MAP) Pulse Ox O2 Delivery O2 Flow Rate FiO2 06/18/18 11:46 Room Air 06/18/18 07:58 98 06/18/18 07:00 98.3 76 20 145/90 (108) 98.3 Physical Exam PHYSICAL EXAM GENERAL: Sitting on the side of the bed, eating, NAD HEENT: Oral mucosa moist. NECK: Supple. No JVD. LUNGS: Clear bilaterally. No wheezing. HEART: S1, S2. No rubs, gallops or murmurs. ABDOMEN: Soft, nontender, nondistended. No rebound, no guarding. EXTREMITIES: No edema, no cyanosis, no clubbing. NEUROLOGIC: Alert and oriented x 3. Grossly nonfocal. PIV ok Labs Lab Laboratory Tests Test 06/18/18 04:05 White Blood Count 7.8 x10^3/uL (4.0-11.0) Red Blood Count 4.16 x10^6/uL (4.30-5.70) Hemoglobin 12.4 g/dL (13.0-17.5) Hematocrit 37.6 % (39.0-53.0) Mean Corpuscular Volume 91 fL (79-100) Mean Corpuscular Hemoglobin 30 pg (25-35) Mean Corpuscular Hemoglobin Concent 33 g/dL (31-37) Red Cell Distribution Width 13.2 % (11.5-14.5) Platelet Count 181 x10^3/uL (140-400) Neutrophils (%) (Auto) 70 % (31-73) Lymphocytes (%) (Auto) 19 % (24-48) Monocytes (%) (Auto) 9 % (0-9) Eosinophils (%) (Auto) 2 % (0-3) Basophils (%) (Auto) 0 % (0-3) Neutrophils # (Auto) 5.5 x10^3uL (1.8-7.7) Lymphocytes # (Auto) 1.4 x10^3/uL (1.0-4.8) Monocytes # (Auto) 0.7 x10^3/uL (0.0-1.1) Eosinophils # (Auto) 0.2 x10^3/uL (0.0-0.7) Basophils # (Auto) 0.0 x10^3/uL (0.0-0.2) Sodium Level 147 mmol/L (136-145) Potassium Level 3.3 mmol/L (3.5-5.1) Chloride Level 109 mmol/L (98-107) Carbon Dioxide Level 29 mmol/L (21-32) Anion Gap 9 (6-14) Blood Urea Nitrogen 10 mg/dL (8-26) Creatinine 1.0 mg/dL (0.7-1.3) Estimated GFR (Cockcroft-Gault) 86.1 Glucose Level 98 mg/dL (70-99) Calcium Level 8.5 mg/dL (8.5-10.1) Magnesium Level 2.1 mg/dL (1.8-2.4) Micro 06/14. BLD CULT RESULT 1 Preliminary Gram negative rods 06/16. BLOOD CULTURE Preliminary NO GROWTH AFTER 2 DAYS Objective Assessment Gram-negative sepsis,1/4 bottles positive, source unclear, could be a contaminant - feels well. Leukocytosis could be multifactorial, on steroids prior to admission. Resolved Pyuria. Urine culture neg Chronic obstructive pulmonary disease. on steroids Immunosuppression on steroids. Acute kidney injury. Bandemia. Generalized weakness, improved. Hypertension. Plan Plan of Care Continue empiric Zosyn. Awaiting ID/ susceptibility results. Continue supportive care. Attending Co-Sign Attending Co-Sign The patient was seen and interviewed as well as examined at the bedside. The chart was reviewed. The case was discussed. Agree with the plan of care. MARILY JAIME APRN Jun 18, 2018 12:48 BLANCA DUNCAN MD Jun 18, 2018 15:17
[2018-06-18 15:00] VITALS: BP 144/86
[2018-06-18] MEDS: ENOXAPARIN 40 MG/0.4 ML SYRINGE. SQ SCH (17:21)
[2018-06-18 19:00] VITALS: BP 156/93
[2018-06-18 23:00] VITALS: BP 142/87
[2018-06-19] MEDS: PIPERACILLIN/TAZOBACTAM 3.375 GM in IV NORMAL SALINE 50ML 50 ML IV SCH ×2 (00:12→06:04)
[2018-06-19 03:00] VITALS: BP 135/72
[2018-06-19] MEDS: ALBUTEROL SULFATE 2.5 MG/3 ML NEBU. NEB SCH ×3 (06:50→15:16)
[2018-06-19] MEDS: BUDESONIDE 0.5 MG/2 ML NEBU. NEB SCH (06:50)
[2018-06-19 07:00] VITALS: BP 146/86
--- NOTE | 2018-06-19 08:03 | PDOC ---
PROGRESS NOTES Chief Complaint Chief Complaint Generalized weakness 1/4 + bacteremia MILAGRO, vasomotor copd stable leukocytosis, on prednisone 10mg daily hypokalemia History of Present Illness History of Present Illness Admitted with renal failure, weakness, bacteremia, hypokalemia. Feeling improved, renal function improved, no longer weak, normal WBC, has been on zosyn. GNR on blood culture, castellanos-sensitive e. coli can treat for 8 additional day on keflex 250mg QID after d/w ID. ROS: no fever, chills, sob or chest pain generalized weakness 1/4 + bacteremia MILAGRO, vasomotor copd stable leukocytosis, on prednisone 10mg daily hypokalemia plan: id consulted added zosyn for now, fu bcx, fu ucx cont home meds add albuterol prn dvt ppx repleted k PTOT Vitals Vitals Vital Signs Date Time Temp Pulse Resp B/P (MAP) Pulse Ox O2 Delivery O2 Flow Rate FiO2 06/19/18 07:45 Room Air 06/19/18 06:50 95 06/19/18 03:00 97.9 92 18 135/72 (93) 97.9 Physical Exam Physical Exam GENERAL: Sitting on the side of the bed, eating, NAD HEENT: Oral mucosa moist. NECK: Supple. No JVD. LUNGS: Clear bilaterally. No wheezing. HEART: S1, S2. No rubs, gallops or murmurs. ABDOMEN: Soft, nontender, nondistended. No rebound, no guarding. EXTREMITIES: No edema, no cyanosis, no clubbing. NEUROLOGIC: Alert and oriented x 3. Grossly nonfocal. PIV ok Lungs: Wheezing, Crackles Assessment and Plan Assessmemt and Plan Problems Medical Problems: (1) COPD (chronic obstructive pulmonary disease) Status: Acute (2) Dehydration Status: Acute (3) Renal insufficiency Status: Acute Comment Review of Relevant I have reviewed the following items reg (where applicable) has been applied. Labs Laboratory Tests Test 06/18/18 04:05 White Blood Count 7.8 x10^3/uL (4.0-11.0) Red Blood Count 4.16 x10^6/uL (4.30-5.70) Hemoglobin 12.4 g/dL (13.0-17.5) Hematocrit 37.6 % (39.0-53.0) Mean Corpuscular Volume 91 fL (79-100) Mean Corpuscular Hemoglobin 30 pg (25-35) Mean Corpuscular Hemoglobin Concent 33 g/dL (31-37) Red Cell Distribution Width 13.2 % (11.5-14.5) Platelet Count 181 x10^3/uL (140-400) Neutrophils (%) (Auto) 70 % (31-73) Lymphocytes (%) (Auto) 19 % (24-48) Monocytes (%) (Auto) 9 % (0-9) Eosinophils (%) (Auto) 2 % (0-3) Basophils (%) (Auto) 0 % (0-3) Neutrophils # (Auto) 5.5 x10^3uL (1.8-7.7) Lymphocytes # (Auto) 1.4 x10^3/uL (1.0-4.8) Monocytes # (Auto) 0.7 x10^3/uL (0.0-1.1) Eosinophils # (Auto) 0.2 x10^3/uL (0.0-0.7) Basophils # (Auto) 0.0 x10^3/uL (0.0-0.2) Sodium Level 147 mmol/L (136-145) Potassium Level 3.3 mmol/L (3.5-5.1) Chloride Level 109 mmol/L (98-107) Carbon Dioxide Level 29 mmol/L (21-32) Anion Gap 9 (6-14) Blood Urea Nitrogen 10 mg/dL (8-26) Creatinine 1.0 mg/dL (0.7-1.3) Estimated GFR (Cockcroft-Gault) 86.1 Glucose Level 98 mg/dL (70-99) Calcium Level 8.5 mg/dL (8.5-10.1) Magnesium Level 2.1 mg/dL (1.8-2.4) Microbiology 06/16/18 Blood Culture - Preliminary, Resulted NO GROWTH AFTER 3 DAYS 06/14/18 Urine Culture - Final, Complete 06/14/18 Urine Culture Result 1 (EMIR) - Final, Complete Medications Current Medications Albuterol/ Ipratropium (Duoneb) 3 ml 1X ONCE NEB Last administered on at 16:04; Start 06/14/18 at 16:00; Stop 06/14/18 at 16:01; Status DC Sodium Chloride 1,000 ml @ 1,000 mls/hr 1X ONCE IV Last administered on 06/14at 16:29; Start 06/14/18 at 16:30; Stop 06/14/18 at 17:29; Status DC Ondansetron HCl (Zofran) 4 mg PRN Q8HRS PRN IV NAUSEA/VOMITING; Start at 17:15; Stop 06/15/18 at 08:25; Status DC Acetaminophen (Tylenol) 650 mg PRN Q4HRS PRN PO FEVER; Start 06/14/18 at 17:15 ; Stop 06/15/18 at 08:24; Status DC Azithromycin 250 ml @ 250 mls/hr 1X ONCE IV Last administered on 06/14/18at 23:03; Start 06/14/18 at 18:15; Stop 06/14/18 at 19:14; Status DC Ceftriaxone Sodium 50 ml @ 100 mls/hr 1X ONCE IV Last administered on at 18:15; Start 06/14/18 at 18:15; Stop 06/14/18 at 18:44; Status DC Piperacillin Sod/ Tazobactam Sod 3.375 gm/Sodium Chloride 50 ml @ 100 mls/hr Q6HRS IV Last administered on 06/19/18at 06:04; Start 06/15/18 at 09:00 Piperacillin Sod/ Tazobactam Sod (Zosyn Per Pharmacy) 1 each PRN DAILY PRN MC SEE COMMENTS; Start 06/15/18 at 08:30 Acetaminophen (Tylenol) 650 mg PRN Q6HRS PRN PO FEVER; Start 06/15/18 at 08:30 Ondansetron HCl (Zofran) 4 mg PRN Q6HRS PRN IV NAUSEA/VOMITING; Start at 08:30 Morphine Sulfate (Morphine Sulfate) 2 mg PRN Q2HR PRN IV MODERATE TO SEVERE PAIN; Start 06/15/18 at 08:30 Tramadol HCl (Ultram) 50 mg PRN Q6HRS PRN PO MILD TO MODERATE PAIN; Start at 08:30 Docusate Sodium (Colace) 100 mg PRN DAILY PRN PO CONSTIPATION; Start 06/15/18 at 08:30 Furosemide (Lasix) 20 mg DAILY PO Last administered on 06/18/18at 08:34; Start 06/15/18 at 12:00 Prednisone (Prednisone) 10 mg DAILY PO Last administered on 06/18/18at 08:34; Start 06/15/18 at 12:00 Budesonide (Pulmicort) 0.5 mg RTBID NEB Last administered on 06/19/18at 06:50; Start 06/15/18 at 20:00 Albuterol Sulfate (Ventolin Neb Soln) 2.5 mg PRN Q4HRS PRN NEB SHORTNESS OF BREATH; Start 06/15/18 at 12:00 Albuterol Sulfate (Ventolin Neb Soln) 2.5 mg RTQID NEB Last administered on 06/19/18at 06:50; Start 06/15/18 at 12:00 Enoxaparin Sodium (Lovenox 40mg Syringe) 40 mg Q24H SQ Last administered on 06/18/18at 17:21; Start 06/15/18 at 16:00 Potassium Chloride (Klor-Con) 40 meq 1X ONCE PO Last administered on at 11:50; Start 06/17/18 at 11:45; Stop 06/17/18 at 11:46; Status DC Potassium Chloride (Klor-Con) 40 meq 1X ONCE PO Last administered on at 08:33; Start 06/18/18 at 08:30; Stop 06/18/18 at 08:31; Status DC Active Scripts Active Reported Symbicort 160-4.5 Mcg Inhaler (Budesonide/Formoterol Fumarate) 10.2 Gm Hfa.aer.ad 2 Puff IH BID Furosemide 20 Mg Tablet 20 Mg PO DAILY Prednisone (Prednisone) 10 Mg Tablet 10 Mg PO DAILY Vitals/I & O Vital Sign - Last 24 Hours 06/18/18 06/18/18 06/18/18 06/18/18 11:00 11:46 15:00 15:28 Temp 98.0 98.1 98.0 98.1 Pulse 76 78 Resp 18 18 B/P (MAP) 135/70 (91) 144/86 (105) Pulse Ox 95 96 96 O2 Delivery Room Air Room Air Room Air Room Air 06/18/18 06/18/18 06/18/18 06/18/18 19:00 19:31 19:32 20:00 Temp 97.9 97.9 Pulse 74 Resp 18 B/P (MAP) 156/93 (114) Pulse Ox 96 98 98 O2 Delivery Room Air Room Air Room Air Room Air 06/18/18 06/19/18 06/19/18 06/19/18 23:00 03:00 06:50 07:45 Temp 97.9 97.9 97.9 97.9 Pulse 76 92 Resp 18 18 B/P (MAP) 142/87 (105) 135/72 (93) Pulse Ox 97 95 95 O2 Delivery Room Air Room Air Room Air Room Air Intake and Output 06/18/18 06/18/18 06/19/18 15:00 23:00 07:00 Intake Total 240 ml 270 ml 50 ml Balance 240 ml 270 ml 50 ml ROBYN MAURICIO MD Jun 19, 2018 08:03
[2018-06-19] MEDS: predniSONE 10 MG TABLET PO SCH (08:34)
[2018-06-19] MEDS: FUROSEMIDE 20 MG TABLET PO SCH (08:35)
[2018-06-19 11:00] VITALS: BP 154/87
--- NOTE | 2018-06-19 11:14 | PDOC ---
Infectious Disease Note Subjective Subjective Feeling good Hoping to go home soon No F/C/S/aches thinks he may have had some bad [place] before coming in as he had an upset stomach but no diarrhea ROS ROS per HPI otherwise neg Vital Sign Vital Signs Vital Signs Date Time Temp Pulse Resp B/P (MAP) Pulse Ox O2 Delivery O2 Flow Rate FiO2 06/19/18 10:56 98 Room Air 06/19/18 07:00 98.1 81 18 146/86 (106) 98.1 Physical Exam PHYSICAL EXAM GENERAL: Propped up in bed, alert, smiling HEENT: Oral mucosa moist. NECK: Supple. LUNGS: Clear bilaterally. HEART: S1, S2. ABDOMEN: Soft, nontender EXTREMITIES: No edema, no cyanosis NEUROLOGIC: Alert and oriented x 3. Grossly nonfocal. PIV Labs Micro 06/14. BLD CULT RESULT 1 Final Escherichia coli ANTIMICROBIAL SUSCEPTIBILITY Final Comment S = Susceptible; I = Intermediate; R = Resistant P = Positive; N = Negative MICS are expressed in micrograms per mL Antibiotic RSLT#1 RSLT#2 RSLT#3 RSLT#4 Amoxicillin/Clavulanic Acid S =4 Ampicillin S =4 Cefepime S<=0.12 Ceftriaxone S<=0.25 Cefuroxime S =4 Ciprofloxacin S<=0.25 Ertapenem S<=0.12 Gentamicin S<=1 Imipenem S<=0.25 Levofloxacin S<=0.12 Meropenem S<=0.25 Piperacillin/Tazobactam S<=4 Tetracycline S<=1 Tobramycin S<=1 Trimethoprim/Sulfa S<=20 06/16. BLOOD CULTURE Preliminary NO GROWTH AFTER 2 DAYS Objective Assessment Gram-negative sepsis,1/4 bottles positive, source unclear, could be a contaminant. E. coli sensitive Leukocytosis could be multifactorial, on steroids prior to admission. Resolved Pyuria. Urine culture neg Chronic obstructive pulmonary disease. on steroids Immunosuppression on steroids. Acute kidney injury. Bandemia. Generalized weakness, improved. Hypertension. Plan Plan of Care Switch Zosyn (06/15) to Rocephin now. He received Rocephin in the ER on the so this will complete 6 days, D/w Dr. Gonzalez Home on Keflex to start 06/20 for 8 days Can F/u ID office week of 06/29 - [phone] D/w Nursing Attending Co-Sign Attending Co-Sign The patient was seen and interviewed as well as examined at the bedside. The chart was reviewed. The case was discussed. Agree with the plan of care. MARILY JAIME APRN Jun 19, 2018 11:14 BLANCA GONZALEZ MD Jun 19, 2018 12:56
[2018-06-19] MEDS ORDERED: CEPH-264 PO (13:34)
--- NOTE | 2018-06-19 13:37 | PDOC3 ---
Discharge Summary Visit Information Date of Admission: Jun 15, 2018 Date of Discharge: Jun 19, 2018 Admitting Diagnosis: ARF Final Diagnosis Problems Medical Problems: (1) COPD (chronic obstructive pulmonary disease) Status: Acute (2) Dehydration Status: Acute (3) Renal insufficiency Status: Acute Brief Hospital Course Allergies Allergies Coded Allergies Type Severity Reaction Last Updated Verified No Known Drug Allergies 09/21/14 No Vital Signs Vital Signs Date Time Temp Pulse Resp B/P (MAP) Pulse Ox O2 Delivery O2 Flow Rate FiO2 06/19/18 11:00 97.7 97 18 154/87 (109) 98 Room Air 97.7 Lab Results Laboratory Tests Test 06/18/18 04:05 White Blood Count 7.8 x10^3/uL (4.0-11.0) Red Blood Count 4.16 x10^6/uL (4.30-5.70) Hemoglobin 12.4 g/dL (13.0-17.5) Hematocrit 37.6 % (39.0-53.0) Mean Corpuscular Volume 91 fL (79-100) Mean Corpuscular Hemoglobin 30 pg (25-35) Mean Corpuscular Hemoglobin Concent 33 g/dL (31-37) Red Cell Distribution Width 13.2 % (11.5-14.5) Platelet Count 181 x10^3/uL (140-400) Neutrophils (%) (Auto) 70 % (31-73) Lymphocytes (%) (Auto) 19 % (24-48) Monocytes (%) (Auto) 9 % (0-9) Eosinophils (%) (Auto) 2 % (0-3) Basophils (%) (Auto) 0 % (0-3) Neutrophils # (Auto) 5.5 x10^3uL (1.8-7.7) Lymphocytes # (Auto) 1.4 x10^3/uL (1.0-4.8) Monocytes # (Auto) 0.7 x10^3/uL (0.0-1.1) Eosinophils # (Auto) 0.2 x10^3/uL (0.0-0.7) Basophils # (Auto) 0.0 x10^3/uL (0.0-0.2) Sodium Level 147 mmol/L (136-145) Potassium Level 3.3 mmol/L (3.5-5.1) Chloride Level 109 mmol/L (98-107) Carbon Dioxide Level 29 mmol/L (21-32) Anion Gap 9 (6-14) Blood Urea Nitrogen 10 mg/dL (8-26) Creatinine 1.0 mg/dL (0.7-1.3) Estimated GFR (Cockcroft-Gault) 86.1 Glucose Level 98 mg/dL (70-99) Calcium Level 8.5 mg/dL (8.5-10.1) Magnesium Level 2.1 mg/dL (1.8-2.4) Brief Hospital Course Admitted with renal failure, weakness dizziness and due to early sepsis with leukocytosis and bacteremia was admitted for further care. Also noted with hypokalemia. Feeling improved, renal function improved, no longer weak, normal WBC, has been on zosyn. GNR on blood culture, castellanos-sensitive e. coli can treat for 8 additional day on keflex 250mg QID after d/w ID. ROS: no fever, chills, sob or chest pain generalized weakness 1/4 + bacteremia MILAGRO, vasomotor copd stable leukocytosis - likely sepsis on admission with bacteremia, is on prednisone 10mg daily, slightly immunosuppressed hypokalemia plan: id consulted added zosyn - ok for d/c on keflex cont home meds add albuterol prn dvt ppx repleted k PTOT Discharge Information Condition at Discharge: Improved Follow Up: Weeks (2) Disposition/Orders: D/C to Home Scheduled Budesonide/Formoterol Fumarate (Symbicort 160-4.5 Mcg Inhaler) 10.2 Gm Hfa.aer.ad, 2 PUFF IH BID, #10.6 Ref 3 (Reported) Entered as Reported by: AUGUST NAVARRO on 06/14/182035 Last Taken: Unknown Dose on 06/13/18 Last Action: Converted on 06/15/18 1154 by HASEEB ANTOINE MD Cephalexin (Keflex) 500 Mg Capsule, 500 MG PO QID for e coli bacteremia for 8 Days, #32 Prescribed by: ROBYN MAURICIO MD on 06/19/18 1334 Furosemide (Furosemide) 20 Mg Tablet, 20 MG PO DAILY, (Reported) Entered as Reported by: AUGUST NAVARRO on 06/14/181955 Last Taken: Unknown Dose on 06/13/18 Last Action: Continued on 06/15/181153 by HASEEB ANTOINE MD Prednisone (Prednisone ) 10 Mg Tablet, 10 MG PO DAILY, (Reported) Entered as Reported by: HALEY RODRIGUEZ on 09/21/1453 Last Taken: Unknown Dose on 06/13/18 Last Action: Continued on 06/15/181153 by HASEEB ANTOINE MD Discontinued Medications Fluticasone/Salmeterol (Advair 250-50 Diskus) 1 Each Disk.w.dev, 1 PUFF IH BID, #3 Ref 3 (Reported) Entered as Reported by: HALEY RODRIGUEZ on 09/21/1453 Last Action: Discontinued on 06/14/182036 by ROBYN BURNETT MD Jun 19, 2018 13:37
[2018-06-19] MEDS: ENOXAPARIN 40 MG/0.4 ML SYRINGE. SQ SCH (15:58)
== END 2018-06-19 16:15 | disposition home or self-care (01) | DRG 871 ==
LOC: ER 14:44 → 5 NORTH 18:25 → OBSVTOIN 06-15 14:20 → INTOOBSV 06-15 14:20
PROVIDERS: ADMIT Internal Medicine; ATTEND Internal Medicine
DX: A41.50 Gram-negative sepsis, unspecified (principal); N17.0 Acute kidney failure with tubular necrosis; N39.0 Urinary tract infection, site not specified; J44.9 Chronic obstructive pulmonary disease, unspecified; I10 Essential (primary) hypertension; E86.0 Dehydration; E87.6 Hypokalemia; E11.9 Type 2 diabetes mellitus without complications; Z82.49 Family history of ischemic heart disease and other diseases of the circulatory system
CPT/HCPCS: 36415; 71045; 80048; 81001; 83735; 83880; 84145; 84484; 85007; 85025; 87040; 87086; 87186; 87205; 93005; 94640; 94760; 96361; 96365; G0378; G0379; J0456; J0690; J0696; J1650; J2543; J7030; J7512; J7613; J7620; J7626; 99285-25